=== PATIENT | female | born 1985 | race American Indian/Alaskan Native ===

== ENCOUNTER 2017-03-23 20:52 | Inpatient (IN) | payer MEDICAID ==
[2017-03-23] MEDS ORDERED: Ketorolac Tromethamine 30 MG/ML VIAL ONE (21:24)
[2017-03-23 21:27] LABS: #Basophils 0.1 thou/uL (0.0-0.2); #Lymphocytes 2.5 thou/uL (1.20-3.40); #Monocytes 0.8 thou/uL (0.11-0.59); %Basophils 0.6 % (0.0-1.0); %Eosinophils 0.4 % (0.0-10.0); %Lymphocytes 30.2 % (21.0-51.0); %Monocytes 9.4 % (0.0-10.0); Hematocrit 41.9 % (36.0-47.0); Red Blood Cell (RBC) Count 4.67 mill/uL (4.20-5.40); White Blood Cell (WBC) Count 8.4 thou/uL (4.8-10.8)
[2017-03-23 21:55] LABS: ALT (SGPT) 72 U/L (8-55); AST (SGOT) 35 U/L (5-34); Alkaline Phosphatase 202 U/L (40-150); Anion Gap 14 mmol/L (10-20); BUN (Urea Nitrogen) 12 mg/dL (7.0-18.7); Bilirubin, Total 0.6 mg/dL (0.2-1.2); CK (CPK) 59 U/L (29-168); Calc. Creatinine Clearance 0 mL/min (70-130); Calcium 9.1 mg/dL (7.8-10.44); Carbon Dioxide 22 mmol/L (22-29); Chloride 99 mmol/L (98-107); Estimated GFR-MDRD 39; Globulin 4.1 g/dL (2.4-3.5); Lipase 90 U/L (8-78); Protein, Total 7.7 g/dL (6.0-8.3)
[2017-03-23 21:56] LABS: Troponin I Less than 0.010 ng/mL (< 0.028)
[2017-03-23 21:58] LABS: Lactic Acid - Sepsis 4.2 mmol/L (0.5-2.2)
[2017-03-23 22:07] LABS: Bilirubin Negative (Negative); Blood, Urine Negative (Negative); Glucose, Urine (Dipstick) >=1000 mg/dL (Negative); Ketone, Urine Negative (Negative); Nitrite Positive (Negative); Protein, Urine (Dipstick) Negative (Neg-Trace); Urobilinogen 0.2 mg/dL (0.2-1.0)
[2017-03-23 22:10] LABS: Bacteria/HPF 4+ HPF (None Seen); Hyaline Casts/LPF 0-3 HYALINE CAST LPF (0-3 Hyaline); RBC/HPF 0-3 HPF (0-3); Squamous Epithelial 0-3 HPF (0-3)
[2017-03-23] MEDS ORDERED: Insulin Regular (Human) 100 UNITS, Admixture Fee 1 EACH in Sodium Chloride 0.9% 100 ML IVPB SCH (22:30)
--- NOTE | 2017-03-23 22:45 | RAD ---
PORTABLE AP CHEST: Date: 03-23-17 History: Chest pain, hyperglycemia. Patient went unresponsive for EMS but responded to pain. Patient is complaining of chest pain and dizziness as well as nausea and shoulder pain. Comparison: 03-31-15 FINDINGS: Cardiac silhouette and pulmonary vasculature are within normal limits for portable technique of the study. The lungs remain clear. There has been no interval change from the prior exam. IMPRESSION: No acute cardiopulmonary process. POS: [facility]
[2017-03-23] MEDS ORDERED: cefTRIAXone\\ROCEPHIN 1 GM VIAL ONE (22:51)
[2017-03-24] MEDS ORDERED: Dextrose 5 %-0.45 % NaCl 1,000 ML IV PRN (00:24)
[2017-03-24] MEDS ORDERED: Sodium Chloride 0.9% 1,000 ML IV PRN ×4 (00:24)
[2017-03-24] MEDS ORDERED: NS 0.9% w/ 20 MEQ KCL 1,000 ML IV PRN (00:24)
[2017-03-24] MEDS ORDERED: CCU Electrolyte Replacement 1 EACH IVPB ONE (00:24)
[2017-03-24] MEDS ORDERED: D5 1/2 NS w/20 mEq KCL 1,000 ML IV PRN (00:24)
[2017-03-24] MEDS ORDERED: Insulin Regular (Human) 100 UNITS, Admixture Fee 1 EACH in Sodium Chloride 0.9% 100 ML IVPB SCH (00:30)
[2017-03-24] MEDS ORDERED: Potassium Chloride 40 MEQ in Sodium Chloride 0.9% 250 ML 250 ML IVPB PRN (00:37)
[2017-03-24] MEDS ORDERED: Potassium Chloride 40 MEQ in Premix Bag 1 BAG IVPB PRN (00:37)
[2017-03-24] MEDS ORDERED: Potassium Chloride 20 MEQ TAB PO PRN (00:37)
[2017-03-24] MEDS ORDERED: Magnesium Oxide 400 MG TAB PO PRN ×2 (00:37)
[2017-03-24] MEDS ORDERED: Potassium Phosphate 9 MMOL in Sodium Chloride 0.9% 100 ML IVPB PRN (00:37)
[2017-03-24] MEDS ORDERED: Potassium Phosphate 12 MMOL in Sodium Chloride 0.9% 250 ML 250 ML IV PRN (00:37)
[2017-03-24] MEDS ORDERED: Potassium Phosphate 15 MMOL in Sodium Chloride 0.9% 250 ML 250 ML IV PRN (00:37)
[2017-03-24] MEDS ORDERED: Magnesium 2 GM/NS 0.9% 100 ML 2 GM in Premix Bag 1 BAG IVPB PRN (00:37)
[2017-03-24] MEDS ORDERED: CCU ELECTROLYTE REPLACEMENT PROTOCOL FS PRN (00:37)
--- NOTE | 2017-03-24 01:02 | PDOC.EVN ---
Event Note - Event Note Event Note: Attending H&P I personally evaluated the patient and discussed the management with Dr. Fernandez. I reviewed the written H&P and it is repeated by me. I agree with the History, Examination, Assessment and Plan documented above with any addition or exceptions noted below. Sadie has hyperosmolar hyperglycemia frmo type II DM. IV fluif resuscitation initiated. Insulin drip initiated. UA abnormal. Original UA and culture was clean catch. Will repeat culture with cath specimen.
[2017-03-24 01:08] VITALS: BMI 35.1
[2017-03-24 01:27] LABS: Phosphorus 2.2 mg/dL (2.3-4.7)
[2017-03-24] MEDS: NS 0.9% w/ 20 MEQ KCL 1,000 ML IV PRN ×2 (01:47→03:44)
[2017-03-24 02:07] LABS: Band 1 % (5-11); Hematocrit 36.4 % (36.0-47.0); Mean Platelet Volume 7.7 fL (7.4-10.4); Neutrophil 51 % (42-75); Red Blood Cell (RBC) Count 4.03 mill/uL (4.20-5.40); White Blood Cell (WBC) Count 8.6 thou/uL (4.8-10.8)
[2017-03-24 02:26] LABS: Anion Gap 9 mmol/L (10-20); BUN (Urea Nitrogen) 12 mg/dL (7.0-18.7); Calc. Creatinine Clearance 107 mL/min (70-130); Calcium 8.2 mg/dL (7.8-10.44); Carbon Dioxide 24 mmol/L (22-29); Chloride 105 mmol/L (98-107); Estimated GFR-MDRD 60
[2017-03-24 04:35] VITALS: BP 111/63; TEMP 97.7
[2017-03-24 04:35] LABS: Anion Gap 12 mmol/L (-14-95); T. Carbon Dioxide 22.8 mmol/L (1.0-85.0); pH (Venous) 7.475 (7.35-7.45); vO2 Saturation-calc 96.4 % (0.0-100.0)
[2017-03-24] MEDS ORDERED: NORGESTIMATE ETHINYL ESTRADIOL PO SCH (09:00)
[2017-03-24] MEDS ORDERED: Lisinopril 10 MG TAB PO SCH (09:00)
[2017-03-24] MEDS ORDERED: Gabapentin 300 MG CAP PO SCH (09:00)
[2017-03-24] MEDS ORDERED: cefTRIAXone\\ROCEPHIN 1 GM in Sodium Chloride 0.9% 100 ML IVPB SCH (22:00)
--- NOTE | 2017-03-29 06:57 | SS-2 ---
DATE OF SERVICE: 03/28/2017 CODE STATUS: FULL. PRIMARY CARE PROVIDER: Shanae Espinoza M.D. ATTENDING: Veto Henderson M.D. RESIDENT: Priscilla Fernandez DO. HISTORIAN: Patient. CHIEF COMPLAINT: Shortness of breath. HISTORY OF PRESENT ILLNESS: Patient is a 32-year-old female with past medical history of diabetes m ellitus, uncontrolled, who presents with worsening shortness of breath and generally not feeling wel l. She missed her afternoon insulin, became lightheaded and sick feeling around 8:00 p.m. took home insulin at that time. Admits to recent head congestion and dysuria. No nausea or vomiting. The p atient was obtunded on the ride to the hospital via EMS. Now alert and oriented x4. In the ER, she was started on insulin drip and given 2 liters of normal saline. PAST MEDICAL HISTORY: 1. Fatty liver disease. 2. Diabetes mellitus, sees Dr. Stevens at [facility]. 3. Neuropathy. 4. Hypertension. PAST SURGICAL HISTORY: 1. . 2. Liver biopsy. 3. Cyst removal. ALLERGIES: TRAMADOL causes itching. MEDICATIONS: 1. Lisinopril 10 mg p.o. daily. 2. Mexiletine 150 mg p.o. q.8 hours. 3. Tresiba 85 units daily. 4. Insulin 70/30, 30 units a.c. 5. Gabapentin 600 mg t.i.d. 6. Mononessa 28 ?. FAMILY HISTORY: 1. Dad with diabetes. 2. Brother with diabetes. 3. Grandmother with hypertension. SOCIAL HISTORY: The patient quit tobacco use one month ago. No alcohol and drug use. No ill conta cts. REVIEW OF SYSTEMS: General: Negative for fever and chills, weight, appetite changes, and night swe ats. Eyes: No vision changes. ENT: Positive for nasal congestion and sore throat. Respiratory: Positive for cough and shortness of breath. Cardiovascular: Negative for chest pain, palpitations , or edema. Gastrointestinal: Negative for nausea, vomiting, diarrhea, or constipation. Genitouri nary: Positive for dysuria and increased frequency. Skin: Negative for rashes or lesions. Muscul oskeletal: Negative for pain and tenderness. Neurologic: Negative for weakness or numbness or syn cope. Positive for lightheadedness. Psychiatric: Negative for anxiety or depression. PHYSICAL EXAMINATION: VITAL SIGNS: Blood pressure 141/101, pulse 97, respirations 18, pulse ox 97% on room air. GENERAL: The patient is alert and oriented x4, in no acute distress, appropriately interactive. EYES: EOMI. ENT: Nasal mucosa within normal limits. Does have some erythema in the oropharynx. NECK: Supple, with anterior cervical lymphadenopathy. CARDIOVASCULAR: Regular rate and rhythm. No murmurs or gallops. Radial pulses 2+, pedal pulses 2+ . RESPIRATORY: Normal effort, no retractions. Clear to auscultation bilaterally. ABDOMEN: Soft with suprapubic tenderness and positive bowel sounds in all 4 quadrants. No CVA tend erness. EXTREMITIES: No clubbing, cyanosis, or edema. MUSCULOSKELETAL: Structure within normal limits. NEUROLOGIC: No focal deficits. PSYCH: Appropriate. LABORATORY DATA: CBC: White blood cell count 8.4, hemoglobin 14.2, hematocrit 41.9, platelets 172. Chemistries: Sodium 131, potassium 4.4, chloride 99, CO2 of 22, BUN 12, creatinine 1.52, glucose 701, calcium 9.1, total protein 7.7, albumin 3.6, AST 35, ALT 72, alkaline phosphatase 202, total bi lirubin 0.6. Lactic acid 4.2. CK-MB 0.9, troponin less than 0.010. Lipase 90. VBG: pH 7.4, pCO2 29.7, PaO2 77.5. UA . Chest x-ray no acute process. ASSESSMENT AND PLAN: The patient was placed in IMCU and started on insulin drip and her medications for other chronic medical conditions. The patient was stabilized and her sugar has come down to th e 200s. 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 The patient then signed the AMA paperwork and left with guard ed disposition. DISCHARGE INSTRUCTIONS: 1. Location: Home. 2. Activity: As tolerated. 3. Diet: Carb conscious diet. 4. Followup: As soon as possible with Dr. Shanae Espinoza.
== END 2017-03-24 07:00 | disposition left against medical advice (07) | DRG 638 ==
LOC: ERS 20:52 → IMCU/EMU 03-24 00:28
PROVIDERS: ADMIT Family Medicine; ATTEND Family Medicine
DX: E11.10 Type 2 diabetes mellitus with ketoacidosis without coma (principal); N17.9 Acute kidney failure, unspecified; E87.2 Acidosis; E87.1 Hypo-osmolality and hyponatremia; N39.0 Urinary tract infection, site not specified; K76.0 Fatty (change of) liver, not elsewhere classified; Z88.5 Allergy status to narcotic agent; Z87.891 Personal history of nicotine dependence; Z83.3 Family history of diabetes mellitus; Z82.49 Family history of ischemic heart disease and other diseases of the circulatory system
CPT/HCPCS: 36415; 36416; 71010; 80048; 80053; 81003; 81015; 82010; 82330; 82553; 82803; 83605; 83690; 83735; 83930; 84100; 84484; 84703; 85007; 85025; 85027; 87040; 87077; 87086; 87186; 93005; 94760; 96360; 96361; 96365; 96375; J0696; J1815; J1885; J7050

== ENCOUNTER 2017-09-25 12:02 | Observation (INO) | payer MEDICAID ==
[2017-09-25 12:56] VITALS: BMI 33.6
[2017-09-25] MEDS ORDERED: Acetaminophen 500 MG TAB PO PRN (13:21)
[2017-09-25] MEDS ORDERED: Ondansetron HCl/PF 4 MG/2 ML Vial SLOW IVP PRN (13:21)
[2017-09-25] MEDS ORDERED: Sodium Chloride 0.9% 1,000 ML IV SCH (13:45)
[2017-09-25 13:49] LABS: #Basophils 0.1 thou/uL (0.0-0.2); #Lymphocytes 2.3 thou/uL (1.20-3.40); #Neutrophils 5.1 thou/uL (1.40-6.50); %Basophils 0.6 % (0.0-1.0); %Eosinophils 0.5 % (0.0-10.0); %Lymphocytes 27.1 % (21.0-51.0); %Neutrophils 59.8 % (42.0-75.0); Mean Corpuscular HGB CONC 33.7 g/dL (32.0-36.0); Mean Corpuscular Hemoglobin 29.7 pg (27.0-31.0); Mean Corpuscular Volume 88.3 fl (81.0-99.0); Platelet Count 200 thou/uL (130-400); RBC Distribution Width 12.8 % (11.5-14.5); Red Blood Cell (RBC) Count 4.38 mill/uL (4.20-5.40); White Blood Cell (WBC) Count 8.5 thou/uL (4.8-10.8)
[2017-09-25] MEDS: Sodium Chloride 0.9% 1,000 ML IV SCH ×2 (13:50→23:25)
[2017-09-25 14:14] LABS: Anion Gap 10 mmol/L (10-20); BUN (Urea Nitrogen) 17 mg/dL (7.0-18.7); Calc. Creatinine Clearance 98 mL/min (70-130); Calcium 9.2 mg/dL (7.8-10.44); Carbon Dioxide 25 mmol/L (22-29); Chloride 109 mmol/L (98-107); Estimated GFR-MDRD 57; Glucose 109 mg/dL (70-105); Magnesium 1.7 mg/dL (1.6-2.6); Phosphorus 2.3 mg/dL (2.3-4.7); Potassium 3.9 mmol/L (3.5-5.1); Sodium 140 mmol/L (136-145)
--- NOTE | 2017-09-25 15:20 | PDOC.FPRHP ---
- History of Present Illness Chief Complaint: Diarrhea, Dehydration History of Present Illness: 32 year old female with PMH of uncontrolled DM type II and neuropathy that presents with a 1 month history of watery and bloody diarrhea. Patient states she was visiting [place] a month ago and upon returning to the [facility] started to develop fever, N/V/D. She went to the ED at [facility] and was prescribed Levoquin for Traveler's diarrhea. The diarrhea worsened, so she went back several days later and was told to stop the antibiotics. She was given fluids and anti-emetics at that time which were successful in helping her to feel better. The n/v resolved after the ED visit; however, the diarrhea has not let up and seems to be more profuse. She states that it does not appear to be foul smelling. She is able to tolerate PO, but liquids go right through her. She has been dizzy the last few days. She was seen in clinic this AM and was noted to be mildly dehydrated with positive orthostatics. She has otherwise been feeling fine and able to go about her daily activities. Patient denies any recent cough , congestion, vision changes, chills, headaches, or profound abdominal pain. She does have cramping abdominal pain associated with diarrhea. Last BM was a few minutes prior to evaluation. ED Course: Patient was directly admitted from [facility]. - Allergies/Adverse Reactions Allergies Allergy/AdvReac Type Severity Reaction Status Date / Time codeine Allergy Verified 09/25/17 12:48 tramadol Allergy Rash Verified 11/28/15 22:03 - Home Medications Medication Instructions Recorded Confirmed Type Gabapentin [Neurontin] 600 mg PO Q8HR 01/09/15 09/25/17 History Morphine Sulfate [Morphine Sulfate] 15 mg PO HS 03/24/17 09/25/17 History Insulin Glargine,Hum.Rec.Anlog 40 unit SQ DAILY 09/25/17 09/25/17 History [Toujeo Solostar] Insulin Regular [HumuLIN R] 30 unit SC AC 09/25/17 09/25/17 History OXcarbazepine [Trileptal] 300 mg PO BID 09/25/17 09/25/17 History - History PMHx: DM type II uncontrolled, Neuropathy, NAFLD PSHx: C/S x1, biopsy of liver FHx: Brother - DM II, Mom - HTN, Dad - DM, Grandfather - colon cancer Social: Endorses smoking history. Quit 4 months ago. Smoke a cigarette every other day since 2010. Denies recent alcohol use. Denies history of drug use. - Review of Systems General: reports: fever/chills, fatigue. denies: weight/appetite/sleep changes Eyes: denies: eye pain, vision changes ENT: denies: nasal congestion, rhinorrhea Respiratory: denies: cough, congestion, shortness of breath Cardiovascular: denies: chest pain, palpitation, edema, paroxysmal nocturnal dyspnea, orthopnea Gastrointestinal: reports: nausea, vomiting, diarrhea, abdominal pain, GI bleeding. denies: constipation Genitourinary: denies: incontinence, dysuria, polyuria Skin: denies: rashes, lesions, jaundice Musculoskeletal: denies: pain, tenderness, stiffness, swelling, arthritis/ arthralgias Neurological: denies: numbness, syncope, seizure, weakness Psychological: reports: depression. denies: anxiety - Vital signs BP: [113/66] HR: [96] RR: [18] Tmax: [98.4] Pox: [94]% on [RA] Wt: [87 kg] - Physical Exam Constitutional: NAD, awake, alert and oriented, well developed HEENT: EOMI, conjunctiva clear, no scleral icterus, grossly normal vision, MMM Neck: supple, trachea midline Chest: no-tender to palpation Heart: RRR, normal S1/S2, no murmurs/rubs/gallops, pulses present, no edema Lungs: CTAB, no respiratory distress, good air movement, no retractions Abdomen: soft, bowel sounds present -Abdomen: Mildly tender to palpation diffusely, but worse in left quadrants Musculoskeletal: normal structure Neurological: no focal deficit, CN II-XII intact Skin: capillary refill <2 seconds Heme/Lymphatic: no unusual bruising or bleeding, no purpura, no petechia Psychiatric: normal mood and affect, good judgment and insight FMR H&P: Results - Labs Result Diagrams: 09/25/17 13:32 09/25/17 13:32 Lab results: WBC 8.5 thou/uL (4.8-10.8) 09/25/17 13:32 Hgb 13.0 g/dL (12.0-16.0) 09/25/17 13:32 Hct 38.7 % (36.0-47.0) 09/25/17 13:32 MCV 88.3 fl (81.0-99.0) 09/25/17 13:32 Plt Count 200 thou/uL (130-400) 09/25/17 13:32 Neutrophils % 59.8 % (42.0-75.0) 09/25/17 13:32 Sodium 140 mmol/L (136-145) 09/25/17 13:32 Potassium 3.9 mmol/L (3.5-5.1) 09/25/17 13:32 Chloride 109 mmol/L (98-107) H 09/25/17 13:32 Carbon Dioxide 25 mmol/L (22-29) 09/25/17 13:32 BUN 17 mg/dL (7.0-18.7) 09/25/17 13:32 Creatinine 1.11 mg/dL (0.6-1.1) H 09/25/17 13:32 Glucose 109 mg/dL (70-105) H 09/25/17 13:32 Calcium 9.2 mg/dL (7.8-10.44) 09/25/17 13:32 FMR H&P: A/P - Problem List (1) Colitis presumed infectious Current Visit: Yes Status: Acute Code(s): K52.9 - NONINFECTIVE GASTROENTERITIS AND COLITIS, UNSPECIFIED (2) LUIS (acute kidney injury) Current Visit: Yes Status: Acute Code(s): N17.9 - ACUTE KIDNEY FAILURE, UNSPECIFIED (3) Neuropathy Current Visit: Yes Status: Chronic Code(s): G62.9 - POLYNEUROPATHY, UNSPECIFIED (4) Insulin dependent type 2 diabetes mellitus, uncontrolled Current Visit: No Status: Chronic Code(s): E11.65 - TYPE 2 DIABETES MELLITUS WITH HYPERGLYCEMIA; Z79.4 - AIRLINE STEWARDESS (CURRENT) USE OF INSULIN - Plan Colitis, presumed infectious - 1 month history of bloody and watery diarrhea - Bentyl for abdominal cramping - Fluids for dehydration; NS @ 125 ml/hr - s/p 1 L bolus NS - Stool culture, stool for E. coli, stool lactoferrin, C. difficile assays, O&P , and vibrio cholera tests pending - Afebrile Moderate dehydration - S/p 1L NS bolus - Maintenance fluids at 125 ml/hr LUIS - s/p 1L NS bolus - Maintenance IVF at 125 ml/hr - AM BMP DM type II - Continue home insulin regimen - BG on BMP 109 - Mild SSI - Check HgA1c if not previously checked; HgA1c 13.2 in 2016 Neuropathy - Continue home medications Hx of HTN - Monitor BP - Add medication if necessary Disposition/LOS: Dispo: Plan for discharge home tomorrow pending hydration status. FMR H&P: Upper Level - Pertinent history Pt is a pleasant 32 yo HF w/PMH of uncontrolled IDDM and neuropathy presents with a 3-4 week hx of bloody diarrhea. She went to another hospital an received Levaquin which she feels made the symptoms worse. Endorses subjective chills, cramping abdominal pain more in her upper abdomen. She has no hx of diarrhea or IBS. Endorses trip to [place] about 1 mo ago. She was direct admitted from clinic for dehydration and stool studies. - Pertinent findings Gen: AOx3 Cardiac: RRR Lungs: CTA Abdomen: normoactive BS, TTP in RUQ and LUQ Extremities: no edema, normal skin tenting, cap refill <2s - Plan Date/Time: 09/25/17 1518 ILynette, have evaluated this patient and agree with findings/plan as outlined by international marketing manager resident. Pertinent changes/additions are listed here. Pertinent A/P- 1. Possible infection colitis-given duration of symptoms, will treats for dehydration with NS, zofran prn nausea, bentyl for abdominal cramping. Stool studies ordered. Pt may need an outpatient colonoscopy after treatment of these symptoms and resolution in 4-6 weeks 2. IDDM-will substitute Toujeo for levemir and add aggressive SSI, check A1c if not recently checked in clinic 3. Neuropathy-will treat with home meds per Dr. Ryan but hold morphine 4. Hx of htn-monitor and add medication if needed
[2017-09-25] MEDS ORDERED: Dextrose 50% Abboject 50 ML SYRINGE SLOW IVP PRN (15:31)
[2017-09-25] MEDS ORDERED: HumaLOG 300 UNITS/3 ML VIAL SC PRN (15:31)
[2017-09-25] MEDS ORDERED: Dextrose 5% in Water 1,000 ML IV PRN (15:31)
[2017-09-25 15:56] LABS: Ref Lab Test Ordered VIBRIO STOOL; Reference Lab Name LABCORP
[2017-09-25] MEDS: Insulin Regular 300 UNITS/3 ML VIAL SC SCH (17:09)
[2017-09-25] MEDS: Dicyclomine 10 MG CAP PO SCH ×2 (17:09→20:30)
[2017-09-25] MEDS: Gabapentin 300 MG CAP PO SCH (20:29)
[2017-09-25] MEDS: OXcarbazepine 300 MG TAB PO SCH (20:29)
[2017-09-25] MEDS: Morphine IR Tab 15 MG TAB PO SCH (20:30)
[2017-09-25 20:45] LABS: Pregnancy Test - Urine (BHCG) Negative (Negative)
[2017-09-25 20:46] LABS: Pregu Control Background? CLEAR/WHITE (CLR/WHITE); Pregu Control Bar Appear? YES (CONTROL BAR); Specific Gravity 1.017 (1.002-1.036)
[2017-09-26 05:11] LABS: Anion Gap 7 mmol/L (10-20); BUN (Urea Nitrogen) 15 mg/dL (7.0-18.7); Calc. Creatinine Clearance 153 mL/min (70-130); Calcium 8.1 mg/dL (7.8-10.44); Carbon Dioxide 21 mmol/L (22-29); Chloride 114 mmol/L (98-107); Estimated GFR-MDRD Greater than 90; Glucose 98 mg/dL (70-105); Potassium 3.7 mmol/L (3.5-5.1); Sodium 138 mmol/L (136-145)
--- NOTE | 2017-09-26 05:23 | PDOC.FM ---
- Subjective Subjective: Sadie Mederos seen at bedside this morning. States she continued to have many BMs last night and was unable to get adequate sleep. She denies any fever, chills, chest pain, dyspnea, n/v. BMs are still watery and blood is present. - Objective MAR Reviewed: Yes Vital Signs & Weight: Vital Signs (12 hours) Temp Pulse Resp BP Pulse Ox 09/26/17 04:05 84 18 108/56 L 96 09/25/17 23:25 92 16 120/67 96 09/25/17 20:25 98.1 F 87 16 112/57 L 95 Weight Weight 86.183 kg I&O: 09/24/17 09/25/17 09/26/17 06:59 06:59 06:59 Intake Total 1850 Balance 1850 Result Diagrams: 09/25/17 13:32 09/26/17 04:19 <Catalino Saba - Last Filed: 09/26/17 06:49> - Objective Vital Signs & Weight: Vital Signs (12 hours) Temp Pulse Resp BP Pulse Ox 09/26/17 11:20 97.7 F 93 18 127/79 97 09/26/17 07:48 98.1 F 84 18 09/26/17 07:09 97.8 F 93 18 118/72 96 09/26/17 04:05 84 18 108/56 L 96 Weight Weight 86.183 kg I&O: 09/25/17 09/26/17 09/27/17 06:59 06:59 06:59 Intake Total 3765 Balance 3765 Result Diagrams: 09/25/17 13:32 09/26/17 04:19 <Sanchez Bang - Last Filed: 09/26/17 15:07> Phys Exam - Physical Examination Constitutional: NAD HEENT: moist MMs, sclera anicteric Neck: supple, full ROM Respiratory: no wheezing, no rales, no rhonchi, clear to auscultation bilateral Cardiovascular: RRR, no significant murmur Gastrointestinal: soft, no distention, positive bowel sounds diffuse TTP Musculoskeletal: no edema, pulses present Neurological: non-focal, normal sensation, moves all 4 limbs Psychiatric: normal affect, A&O x 3 Skin: no rash, normal turgor, cap refill <2 seconds <Catalino Saba - Last Filed: 09/26/17 06:49> Dx/Plan (1) Colitis presumed infectious Code(s): K52.9 - NONINFECTIVE GASTROENTERITIS AND COLITIS, UNSPECIFIED Status : Acute (2) LUIS (acute kidney injury) Code(s): N17.9 - ACUTE KIDNEY FAILURE, UNSPECIFIED Status: Resolved (3) Neuropathy Code(s): G62.9 - POLYNEUROPATHY, UNSPECIFIED Status: Chronic (4) Insulin dependent type 2 diabetes mellitus, uncontrolled Code(s): E11.65 - TYPE 2 DIABETES MELLITUS WITH HYPERGLYCEMIA; Z79.4 - RETIREMENT (CURRENT) USE OF INSULIN Status: Chronic - Plan Plan: Colitis, presumed infectious - 1 month history of bloody and watery diarrhea - Continue bentyl for abdominal cramping - Continue fluids for dehydration; NS @ 125 ml/hr - s/p 1 L bolus NS - Studies negative for campylobacter, shiga, giardia, crypto, absent fecal lactoferrin - Pending Stool culture, C. difficile assays, O&P, and vibrio cholera - Afebrile Moderate dehydration - S/p 1L NS bolus - Maintenance fluids at 125 ml/hr LUIS - now resolved - s/p 1L NS bolus - Maintenance IVF at 125 ml/hr DM type II - Continue home insulin regimen - Fasting BG this morning was 109 - Mild SSI - Check HgA1c if not previously checked; HgA1c 13.2 in 2016 Neuropathy - Continue home medications Hx of HTN - Monitor BP - Add medication if necessary Disposition/LOS: Dispo: Plan for discharge home today pending hydration status. <Catalnio Saba - Last Filed: 09/26/17 06:49> Attending Addendum - Attending Addendum Date/Time: 09/26/17 7409 I personally evaluated the patient and discussed the management with Dr. Hernandez and Dr. Saba. I agree with the History, Examination, Assessment and Plan documented above with any addition or exceptions noted below. Ms. Mederos is a 32 y/o who presented with a 1 month hx of diarrhea that started a few days after returning from a trip to [place]. She was previously treated with Levaquin that made symptoms worse. Has been having bloody diarrhea, cramps, but no fever, chills or sweats since early in the course when she did run subjective fever. She feels slightly better since admission with the fluids, but still had many liquid BMs over night. PMH: Insulin dependent DM2, Neuropathy. HEENT: mm moist, no icterus. Neck: no adenopathy Lungs: CTA Cor: RRR, no murmur Abd: soft, BS active, no organomegaly or masses. Mild generalized abdominal tenderness but no guard or rebound. Ext: No C/E/C/Pallor Alert and oriented. All stool studies are negative so far. 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 P: Start Oral Metronidazole. Send out stool test for O&P. MD Harrison <Sanchez Bang - Last Filed: 09/26/17 15:07>
[2017-09-26] MEDS: Gabapentin 300 MG CAP PO SCH ×3 (05:40→20:14)
[2017-09-26] MEDS: Insulin Regular 300 UNITS/3 ML VIAL SC SCH ×3 (08:20→17:14)
[2017-09-26] MEDS: Dicyclomine 10 MG CAP PO SCH ×4 (08:20→20:09)
[2017-09-26] MEDS: Sodium Chloride 0.9% 1,000 ML IV SCH (08:20)
[2017-09-26] MEDS ORDERED: Non-Formulary Item 1 EACH (Insulin Glargine,Hum.Rec.Anlog [Toujeo Solostar] 40 UNIT) SQ SCH (09:00)
[2017-09-26] MEDS ORDERED: Enoxaparin Sodium 40 MG/0.4 ML SYRINGE SC SCH (09:00)
[2017-09-26] MEDS: OXcarbazepine 300 MG TAB PO SCH ×2 (09:41→20:09)
[2017-09-26] MEDS: Insulin Detemir 100 UNITS/ML 40 UNITS in Pre-Filled Syringe SC SCH (09:41)
[2017-09-26] MEDS: Lactinex Tablet PO SCH (09:41)
[2017-09-26] MEDS: metroNIDAZOLE 500 MG TAB PO SCH ×2 (11:26→20:09)
[2017-09-26] MEDS: Morphine IR Tab 15 MG TAB PO SCH (20:09)
[2017-09-27] MEDS: metroNIDAZOLE 500 MG TAB PO SCH (02:16)
[2017-09-27] MEDS: Gabapentin 300 MG CAP PO SCH (05:27)
--- NOTE | 2017-09-27 06:01 | PDOC.FM ---
- Subjective Subjective: Sadie Mederos seen at bedside this morning. She is feeling better however she continued to have multiple watery BMs last night, no blood though. She denies any fever, chills, chest pain, dyspnea. She is tolerating PO fluids well without nausea or vomiting. - Objective MAR Reviewed: Yes Vital Signs & Weight: Vital Signs (12 hours) Temp Pulse Resp BP BP Pulse Ox 09/27/17 02:13 97.7 F 99 16 135/84 96 09/26/17 20:09 98.3 F 95 18 09/26/17 18:57 98.3 F 95 18 128/73 95 Weight Weight 86.183 kg I&O: 09/25/17 09/26/17 09/27/17 06:59 06:59 06:59 Intake Total 3765 960 Balance 3765 960 Result Diagrams: 09/27/17 06:03 09/26/17 04:19 <Catalino Saba - Last Filed: 09/27/17 06:49> - Objective Vital Signs & Weight: Vital Signs (12 hours) Temp Pulse Resp BP BP Pulse Ox 09/27/17 11:39 98.3 F 101 H 18 131/72 96 09/27/17 08:00 97.6 F 102 H 16 09/27/17 07:10 97.6 F 102 H 16 135/82 96 09/27/17 02:13 97.7 F 99 16 135/84 96 Weight Weight 86.183 kg I&O: 09/26/17 09/27/17 09/28/17 06:59 06:59 06:59 Intake Total 3765 960 Balance 3765 960 Result Diagrams: 09/27/17 06:03 09/27/17 06:03 <Sanchez Bang - Last Filed: 09/27/17 12:26> Phys Exam - Physical Examination Constitutional: NAD HEENT: moist MMs, sclera anicteric Neck: no JVD, supple, full ROM Respiratory: no wheezing, no rales, no rhonchi, clear to auscultation bilateral Cardiovascular: RRR, no significant murmur Gastrointestinal: soft, non-tender, no distention, positive bowel sounds no TTP compared to yesterday Musculoskeletal: no edema, pulses present Neurological: non-focal, moves all 4 limbs Psychiatric: normal affect, A&O x 3 Skin: normal turgor, cap refill <2 seconds <Catalino Saba - Last Filed: 09/27/17 06:49> Dx/Plan (1) Colitis presumed infectious Code(s): K52.9 - NONINFECTIVE GASTROENTERITIS AND COLITIS, UNSPECIFIED Status : Acute (2) LUIS (acute kidney injury) Code(s): N17.9 - ACUTE KIDNEY FAILURE, UNSPECIFIED Status: Resolved (3) Neuropathy Code(s): G62.9 - POLYNEUROPATHY, UNSPECIFIED Status: Chronic (4) Insulin dependent type 2 diabetes mellitus, uncontrolled Code(s): E11.65 - TYPE 2 DIABETES MELLITUS WITH HYPERGLYCEMIA; Z79.4 - RADARMAN (CURRENT) USE OF INSULIN Status: Chronic - Plan Plan: Colitis, presumed infectious - 1 month history of bloody and watery diarrhea - Continue bentyl for abdominal cramping - Holding fluids now as patient is tolerating PO fluids - s/p 1 L bolus NS - Studies negative for campylobacter, shiga, giardia, crypto, c diff, absent fecal lactoferrin, culture negative to date - Pending Stool culture, O&P, and vibrio cholera - Afebrile Moderate dehydration - S/p 1L NS bolus - hydration status improved, tolerating PO fluids LUIS - now resolved - s/p 1L NS bolus - improved DM type II - Continue home insulin regimen - Fasting BG this morning was 109 - Mild SSI - Check HgA1c if not previously checked; HgA1c 13.2 in 2016 Neuropathy - Continue home medications Hx of HTN - Monitor BP - Add medication if necessary <Catalino Saba - Last Filed: 09/27/17 06:49> Attending Addendum - Attending Addendum Date/Time: 09/27/17 1224 I personally evaluated the patient and discussed the management with Dr. Saba. I agree with the History, Examination, Assessment and Plan documented above with any addition or exceptions noted below. She reports diarrhea has slowed a little bit. No blood. Stool studies negative, but await the Send out for entameboae histolytica. Stable for discharge today on Flagyl 750 mg tid. F/U at [facility] with her PCP. Lactose free diet. If she fails to improve on this regimen would recommend a diagnostic colonoscopy for biopsies. Harrison< <Sanchez Bang - Last Filed: 09/27/17 12:26>
[2017-09-27 06:41] LABS: #Eosinphils 0.1 thou/uL (0.0-0.7); #Lymphocytes 1.9 thou/uL (1.20-3.40); #Monocytes 0.9 thou/uL (0.11-0.59); #Neutrophils 3.8 thou/uL (1.40-6.50); %Basophils 0.5 % (0.0-1.0); %Eosinophils 1.1 % (0.0-10.0); %Lymphocytes 28.3 % (21.0-51.0); %Monocytes 13.2 % (0.0-10.0); %Neutrophils 56.9 % (42.0-75.0); Hemoglobin 11.6 g/dL (12.0-16.0); Mean Corpuscular HGB CONC 33.4 g/dL (32.0-36.0); Mean Corpuscular Hemoglobin 30.2 pg (27.0-31.0); Mean Corpuscular Volume 90.5 fl (81.0-99.0); Platelet Count 155 thou/uL (130-400); RBC Distribution Width 12.9 % (11.5-14.5); Red Blood Cell (RBC) Count 3.85 mill/uL (4.20-5.40); White Blood Cell (WBC) Count 6.6 thou/uL (4.8-10.8)
[2017-09-27 07:11] LABS: ALT (SGPT) 46 U/L (8-55); AST (SGOT) 45 U/L (5-34); Albumin 3.1 g/dL (3.5-5.0); Alkaline Phosphatase 107 U/L (40-150); Anion Gap 10 mmol/L (10-20); BUN (Urea Nitrogen) 14 mg/dL (7.0-18.7); Bilirubin, Total 0.3 mg/dL (0.2-1.2); Calc. Creatinine Clearance 143 mL/min (70-130); Calcium 8.3 mg/dL (7.8-10.44); Carbon Dioxide 16 mmol/L (22-29); Chloride 114 mmol/L (98-107); Estimated GFR-MDRD 88; Globulin 3.4 g/dL (2.4-3.5); Glucose 124 mg/dL (70-105); Potassium 4.3 mmol/L (3.5-5.1); Protein, Total 6.5 g/dL (6.0-8.3); Sodium 136 mmol/L (136-145)
[2017-09-27] MEDS: Insulin Regular 300 UNITS/3 ML VIAL SC SCH (08:46)
[2017-09-27] MEDS: Insulin Detemir 100 UNITS/ML 40 UNITS in Pre-Filled Syringe SC SCH (08:46)
[2017-09-27] MEDS: Lactinex Tablet PO SCH (08:47)
[2017-09-27] MEDS: Dicyclomine 10 MG CAP PO SCH (08:47)
[2017-09-27] MEDS: OXcarbazepine 300 MG TAB PO SCH (08:47)
[2017-09-27 12:06] VITALS: BP 131/72; TEMP 98.3
--- NOTE | 2017-09-28 11:09 | DIS-2 ---
DATE OF ADMISSION: 09/25/2017 DATE OF DISCHARGE: 09/27/2017 RESIDENT: Catalino Saba M.D. ADMITTING ATTENDING: Dr. Latoya Mayo. DISCHARGE ATTENDING: Dr. Sanchez Bagn. CONSULTATIONS: None. PROCEDURES: None. PRIMARY DIAGNOSIS: Infectious colitis. SECONDARY DIAGNOSES: 1. Type 2 diabetes mellitus. 2. Neuropathy. 3. Acute kidney injury. 4. Dehydration. DISCHARGE MEDICATIONS: 1. Gabapentin 600 mg p.o. q.8 hours. 2. Morphine sulfate 15 mg p.o. at bedtime. 3. Humulin R 30 units subcu a.c. 4. Oxcarbazepine 300 mg p.o. b.i.d. 5. Insulin Glargine 40 units subcu daily. NEW HOME MEDICATIONS: 1. Lactobacillus 1 tab p.o. daily. 2. Metronidazole 500 mg p.o. t.i.d. HISTORY OF PRESENT ILLNESS AND HOSPITAL COURSE: Ms. Sadie Mederos is a 32-year-old female with past medical history of uncontrolled type 2 diabetes mellitus, neuropathy who presents with a 1 month his tory of watery and bloody diarrhea. The patient states that she was visiting [place] one month ago an d upon [facility], she developed fever, nausea, vomiting, diarrhea. She went to the ED at [facility] and was prescribed Levaquin for traveler's diarrhea. The diarrhea worsened and sh e went back several days later and was told to stop the antibiotics. She was given fluids and antiem etics at that time, which were successful in improving her symptoms. Her nausea and vomiting resolve d after that visit; however, the diarrhea has continued and seems to be worsening. Patient states th at the diarrhea does not appear to be foul smelling. She is able to tolerate p.o. fluids, but the fl uids go right through her and she has been dizzy for the last few days. She was seen in clinic at [facility] and was found to be mildly dehydrated and had positive orthostatics, so she was ad mitted to the hospital. Patient was started on Bentyl for abdominal cramping and started on IV fluid s for dehydration. Stool cultures and stool studies were done within the first day of her admission. Her LUIS resolved. Creatinine went from 1.11-0.71. Stool studies showed absence of elevated fecal lactoferrin, negative Giardia and cryptosporidium antigens. Stools culture showed no gram negative, normal enteric queenie, few gram positive, normal enteric queenie including few yeast and no Salmonella, Shigella, or E. coli on . Campylobacter and Shiga toxin tests were negative and C. difficile an tigen and toxins were negative. Ova and parasites are pending as well as tissue transglutaminase IgA as well as fecal fat and Vibrio cholerae test is still pending. Patient's dehydration cleared and w as cleared for discharge with close follow up with [facility] physicians. The patient was advised to increase p.o. fluid intake with low fat, which is including water or sugar free Gatorade or Pedialyte . The patient was started on metronidazole on 09/26/2017 for treatment of presumed Entamoeba histoly miles infection. Her pending studies will hopefully provide definitive diagnosis. Patient's abdomina l pain improved during her admission. DISPOSITION: Stable. DISCHARGE INSTRUCTIONS: 1. Location: Home. 2. Diet: Diabetic diet with increasing fluid intake with low sugar beverages. 3. Activity: As tolerated. 4. Followup: Follow up with [facility] physician within next 3 days for reevaluation.
[2017-10-01 15:28] LABS: Routine O & P Final report (.)
== END 2017-09-27 13:06 | disposition home or self-care (01) ==
LOC: 2SW 12:02
PROVIDERS: ADMIT Family Medicine; ATTEND Family Medicine
DX: A09 Infectious gastroenteritis and colitis, unspecified (principal); E11.40 Type 2 diabetes mellitus with diabetic neuropathy, unspecified; N17.9 Acute kidney failure, unspecified; E86.0 Dehydration; E11.65 Type 2 diabetes mellitus with hyperglycemia; Z88.5 Allergy status to narcotic agent; Z79.891 Long term (current) use of opiate analgesic; Z79.4 Long term (current) use of insulin; Z79.899 Other long term (current) drug therapy; Z98.891 History of uterine scar from previous surgery; Z98.890 Other specified postprocedural states; Z87.891 Personal history of nicotine dependence
CPT/HCPCS: 36415; 36416; 80048; 80053; 81025; 83516; 83630; 83735; 84100; 85025; 87045; 87046; 87177; 87324; 87328; 87329; 87449; 87899; 93005; 93010; 96360; 96361; G0378; J1815

== ENCOUNTER 2017-09-29 17:24 | Emergency (ER) | payer MEDICAID | END 2017-09-29 22:07 | disposition home or self-care (01) | LOC: ERS 17:24 | DX: K64.8 Other hemorrhoids (principal); K64.4 Residual hemorrhoidal skin tags; R19.7 Diarrhea, unspecified; E11.40 Type 2 diabetes mellitus with diabetic neuropathy, unspecified; F41.9 Anxiety disorder, unspecified; F32.9 Major depressive disorder, single episode, unspecified; F17.210 Nicotine dependence, cigarettes, uncomplicated; Z79.4 Long term (current) use of insulin | CPT/HCPCS: 96360 ==

== ENCOUNTER 2017-10-01 12:18 | Observation (INO) | payer MEDICAID ==
[2017-10-01 13:20] VITALS: BMI 33.2
[2017-10-01] MEDS ORDERED: Diphenoxylate HCl/Atropine Tablet PO PRN (13:38)
[2017-10-01] MEDS ORDERED: Diphenoxylate HCl/Atropine Tablet PO SCH (13:45)
[2017-10-01] MEDS ORDERED: Lactated Ringer's 1,000 ML IV SCH (13:45)
--- NOTE | 2017-10-01 13:59 | PDOC.FPRHP ---
- History of Present Illness Chief Complaint: Dehydration, Intractable Diarrhea History of Present Illness: 32 year old female with PMH of uncontrolled DM type II and neuropathy that presents with a 1.5 month history of watery and bloody diarrhea. Patient states she was visiting [place] a month ago and upon returning to the [facility] started to develop fever, N/V/D. She went to the ED at [facility] and was prescribed Levoquin for Traveler's diarrhea. The diarrhea worsened, so she went back several days later and was told to stop the antibiotics. She was given fluids and anti-emetics at that time which were successful in helping her to feel better. The n/v resolved after the ED visit; however, the diarrhea has not let up and seems to be more profuse. Pt then went into clinic last week where she was found to be dehydrated and then admitted to [facility]. At that time we got stool studies and cultures all which are negative at this time. She got IV fluids and rehydrated. She was then discharged a few days ago. She also was px flagyl to try and treat for entomeba hystolytica. She came into the ER 2 nights ago and dx with hemorrhoids and told to f/u in clinic. She then f/u in clinic today where diarrhea was not improved. She has not been tolerating PO food. She has been taking the flagyl with no success. Says she has been drinking plenty of fluids but they go right through her. At clinic her BP was 90/40 and she was tachycardic. She was then sent her for admission due to dehydration. Pt reports Reports being dizzy and lightheaded. Pt states she also get SOB with exertion. Pt reports having tried Pepto and Immodium in past for diarrhea and did not resolve symptoms. Pt denies nausea or vomiting. Denies any fever or chills. Reports having crampy sharp shooting abdominal pain. Denies any chest pain. Denies any other sx's at this time. - Allergies/Adverse Reactions Allergies Allergy/AdvReac Type Severity Reaction Status Date / Time codeine Allergy Verified 10/01/17 13:18 tramadol Allergy Rash Verified 10/01/17 13:18 - Home Medications Medication Instructions Recorded Confirmed Type Gabapentin [Neurontin] 600 mg PO Q8HR 01/09/15 10/01/17 History Morphine Sulfate 15 mg PO HS 03/24/17 10/01/17 History Insulin Glargine,Hum.Rec.Anlog 40 unit SQ DAILY 09/25/17 10/01/17 History [Touandreo Solostar] Insulin Regular [HumuLIN R Vial] 30 unit SC AC 09/25/17 10/01/17 History Lactobacillus [Floranex] 1 tab PO DAILY #30 tab 09/27/17 10/01/17 Rx - History PMHx: DM type II uncontrolled, Neuropathy, NAFLD PSHx: C/S x1, biopsy of liver FHx: Brother - DM II, Mom - HTN, Dad - DM, Grandfather - colon cancer Social: Endorses smoking history. Quit 4 months ago. Smoke a cigarette every other day since 2010. Denies recent alcohol use. Denies history of drug use. - Review of Systems General: reports: weight/appetite/sleep changes. denies: fever/chills, night sweats, fatigue Eyes: denies: eye pain, vision changes ENT: denies: nasal congestion, rhinorrhea Respiratory: denies: cough, congestion, shortness of breath, exercise intolerance Cardiovascular: denies: chest pain, palpitation, edema, paroxysmal nocturnal dyspnea, orthopnea, other Gastrointestinal: reports: diarrhea, abdominal pain. denies: nausea, vomiting, constipation, GI bleeding Genitourinary: denies: incontinence, dysuria, polyuria, discharge Skin: denies: rashes, lesions, jaundice, itching Musculoskeletal: denies: pain, tenderness, stiffness, swelling, arthritis/ arthralgias Neurological: denies: numbness, syncope, seizure, weakness Psychological: denies: anxiety, depression - Vital signs BP: [] HR: [] RR: [] Tmax: [] Pox: []% on [] Wt: [] - Physical Exam Constitutional: NAD, awake, alert and oriented, well developed HEENT: normocephalic and atraumatic, PERRLA, conjunctiva clear, normal nasal mucosa -HEENT: mucous membranes dry Neck: supple, trachea midline, no LAD, no thyromegaly Chest: no-tender to palpation, no lesions Heart: RRR, normal S1/S2, no murmurs/rubs/gallops, pulses present, no edema Lungs: CTAB, no respiratory distress, good air movement, no rales/rhonchi, no wheezing, no retractions Abdomen: soft, bowel sounds present, no masses/distention -Abdomen: all quadrants tender to palpation Musculoskeletal: normal structure, normal tone, ROM grossly normal Neurological: no focal deficit, normal sensation Skin: no rash/lesions, good turgor, capillary refill <2 seconds, no jaundice Heme/Lymphatic: no unusual bruising or bleeding, no purpura, no petechia Psychiatric: normal mood and affect, good judgment and insight, intact recent and remote memory FMR H&P: Results - Labs Result Diagrams: 10/01/17 13:44 10/01/17 13:44 Lab results: Labs are pending FMR H&P: A/P - Problem List (1) Intractable diarrhea Current Visit: Yes Status: Acute Code(s): R19.7 - DIARRHEA, UNSPECIFIED (2) Gastroenteritis Current Visit: No Status: Acute Code(s): K52.9 - NONINFECTIVE GASTROENTERITIS AND COLITIS, UNSPECIFIED (3) Insulin dependent type 2 diabetes mellitus, uncontrolled Current Visit: No Status: Chronic Code(s): E11.65 - TYPE 2 DIABETES MELLITUS WITH HYPERGLYCEMIA; 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 Pt hypotensive and tachycardic at outside clinic. - Bentyl and simethicone for abdominal cramping and gas pain -Possibly get CT abdomen/pelvis for further evaluation - Fluids for dehydration; Will give 1 bolus LR and then continue maintenance w/ LR @ 125 ml/hr - Stool culture, stool for E. coli, stool lactoferrin, C. difficile assays, O&P , and vibrio cholera tests all negative at recent hospitilization 2 days ago. No need to repeat at this time -ttG was negative at last visit -Consult GI- Case- follow recs -CBC pending, CMP pending - Afebrile Moderate dehydration - Pt has dry mucous membranes and hypotensive and tachycardic at outside clinic - Give a boluis and then Maintenance fluids at 125 ml/hr DM type II - Continue home insulin regimen -Awaiting CMP - Mild SSI Neuropathy - Continue home medications Hx of HTN - Monitor BP - Add medication if necessary FMR H&P: Upper Level - Pertinent history Pt is a 32 yo F who was recently admitted for diarrhea and discharged this past weekend on 09/27/17. She states that after she went home, she has had excruciating rectal pain with bms and has developed hemorrhoids. She actually came back to ED after being discharged for the pain and was told she had hemorrhoids by the ED physician. All of her stool studies during that stay were negative. She has no hx or family hx of IBS or inflammatory bowel disease. States that she continues to have mostly watery-green liquid stools 3x per hour. Trying to stay hydrated by cannot maintain hydration with amount of diarrhea. Continues to have cramping and some lightheadedness. Denies n/v, fever , chest pain, shortness of breath. - Pertinent findings Temp 98.1 P 101 resp 15 O2 98% BP 126/72 General: appears in no acute distress, obese, AOx4 HEENT: mildly dry mm Heart: RRR, no murmurs gallops clicks or rubs Lungs: CTA, no wheezes rales rubs rhonchi Abdomen: soft, mild diffuse TTP, normoactive bs Extremities: cap refill <2 s, no tenting, several attempts at IV - Plan Date/Time: 10/01/17 1359 1. Dehydtation 2/2 to diarrhea of unknown origin-does not appear to be infectious from multiple stool studies done at last admission, having bloody diarrhea, no hx of inflammatory bowel disease but with re-admission with obtain CT and consult GI, appreciate recs. We will give her lomotil for her cramping symptoms, states that bentyl has not helped in the past. NS @ 200. Encouraged oral hydration. 2. External hemorrhoids-will give topical lidocaine and hydrocortisone cream for symptomatic relief. She has been recommended sitz baths in the past as well. 3. [id number] home insulin--takes lantus will get levemir here and SSI 4. Neuropathy- continue home gabapentin I, Lynette Kumar, have evaluated this patient and agree with findings/plan as outlined by internal combustion engine subassembler resident. Pertinent changes/additions are listed here. Attending Addendum - Attending Addendum Date/Time: 10/01/17 [id number] I personally evaluated the patient and discussed the management with Dr. Faust on 10/01/17. I agree with the History, Examination, Assessment and Plan documented above with any addition or exceptions noted below. Patient continues to have diarrhea after lomotil. Dr. Watson coming to evaluate patient shortly, likely going to colonoscopy tomorrow morning. May have clear liquids tonight. Abd exam benign and workup on diarrhea normal up to this point. Continue rehydration and diabetes management in the meantime.
[2017-10-01 14:12] LABS: #Eosinphils 0.1 thou/uL (0.0-0.7); #Lymphocytes 2.2 thou/uL (1.20-3.40); #Monocytes 0.8 thou/uL (0.11-0.59); %Basophils 0.6 % (0.0-1.0); %Eosinophils 0.9 % (0.0-10.0); %Lymphocytes 27.1 % (21.0-51.0); %Monocytes 10.3 % (0.0-10.0); %Neutrophils 61.1 % (42.0-75.0); Hemoglobin 12.7 g/dL (12.0-16.0); Mean Corpuscular HGB CONC 34.2 g/dL (32.0-36.0); Mean Corpuscular Hemoglobin 30.5 pg (27.0-31.0); Mean Corpuscular Volume 89.1 fl (81.0-99.0); Mean Platelet Volume 7.5 fL (7.4-10.4); Platelet Count 194 thou/uL (130-400); RBC Distribution Width 13.3 % (11.5-14.5); Red Blood Cell (RBC) Count 4.18 mill/uL (4.20-5.40); White Blood Cell (WBC) Count 8.1 thou/uL (4.8-10.8)
[2017-10-01] MEDS ORDERED: Simethicone Chewable 80 MG TAB PO PRN (14:13)
[2017-10-01] MEDS ORDERED: Ondansetron HCl/PF 4 MG/2 ML Vial IVP PRN (14:32)
[2017-10-01] MEDS ORDERED: Ondansetron ODT 4 MG TAB PO PRN (14:32)
[2017-10-01] MEDS ORDERED: Acetaminophen 325 MG TAB PO PRN (14:32)
[2017-10-01] MEDS ORDERED: Acetaminophen 650 MG Suppository PR PRN (14:32)
[2017-10-01 14:40] LABS: ALT (SGPT) 54 U/L (8-55); AST (SGOT) 46 U/L (5-34); Albumin 3.7 g/dL (3.5-5.0); Alkaline Phosphatase 131 U/L (40-150); Anion Gap 8 mmol/L (10-20); BUN (Urea Nitrogen) 12 mg/dL (7.0-18.7); Bilirubin, Total 0.4 mg/dL (0.2-1.2); Calc. Creatinine Clearance 117 mL/min (70-130); Calcium 8.7 mg/dL (7.8-10.44); Carbon Dioxide 12 mmol/L (22-29); Chloride 120 mmol/L (98-107); Estimated GFR-MDRD 70; Globulin 3.5 g/dL (2.4-3.5); Glucose 165 mg/dL (70-105); Phosphorus 2.6 mg/dL (2.3-4.7); Protein, Total 7.2 g/dL (6.0-8.3); Sodium 136 mmol/L (136-145)
[2017-10-01] MEDS: Gabapentin 300 MG CAP PO SCH ×2 (15:19→22:04)
[2017-10-01] MEDS: Lactated Ringer's 1,000 ML IV SCH (15:30)
[2017-10-01] MEDS: Lidocaine-Prilocaine 2.5% Cream 5 GM TUBE TOP SCH (16:44)
[2017-10-01] MEDS ORDERED: GoLYTELY 4,000 ml Bottle PO SCH (18:45)
[2017-10-01] MEDS: Insulin Regular 300 UNITS/3 ML VIAL SC SCH (19:29)
[2017-10-01] MEDS: Preparation H HC 1% Cream 26 GM TUBE TOP SCH (22:02)
[2017-10-01] MEDS ORDERED: Morphine IR Tab 15 MG TAB PO SCH (23:15)
[2017-10-02] MEDS: Lactated Ringer's 1,000 ML IV SCH ×2 (00:20→05:47)
--- NOTE | 2017-10-02 00:57 | CON ---
GI INPATIENT CONSULT NOTE DATE OF CONSULTATION: 10/01/2017 REASON FOR CONSULTATION: Chronic diarrhea. HISTORY OF PRESENT ILLNESS: Sadie Mederos is a 32-year-old woman previously seen by my GI colleague , Dr. Ramírez Rubin. She has a history of nonalcoholic steatohepatitis, diabetes with neuropath y. She was treated for H. pylori back in 2012. She also has a history of Dilcia esophagitis few ye ars ago, which was successfully treated. At one point, gastroparesis was suspected due to chronic sy mptoms of nausea, but she states nausea has not really been a problem for her recently. She says she was doing fine until about 1 month ago. At that time, she was in [place] and she came do wn fairly acutely with diarrhea, this is watery, urgent, quite frequent diarrhea. She states that sh e is having a bowel movement 2-3 times every hour and this includes through the night. She was initi ally treated with outpatient levofloxacin, but felt that her symptoms worsened on this. She was admi tted to the hospital last week with dehydration. At that time, full stool workup was performed inclu ding stool culture, E. coli, C. difficile, lactoferrin, and ova and parasites and all that was negati ve. TTG antibodies were negative. She was treated with Flagyl, but she states this did not really h elp either. There is no nausea or vomiting. She does have some associated cramping, abdominal pain which is generalized with the diarrhea. She is able to hold food down, no problem, but she feels lik e it goes right through her. She says there was a scant amount of blood within the past few weeks wi th some bowel movements, but she is attributing this to hemorrhoids. She has had some pain around th e anal area because of all this, diarrhea. She has never undergone a colonoscopy in the past. There is no family history of inflammatory bowel disease. REVIEW OF SYSTEMS: Full review of systems including constitutional, head, eyes, ears, nose, throat, GI, , cardiovascular, respiratory, musculoskeletal, and neurologic systems is negative except as no phyllis in the HPI. PAST MEDICAL HISTORY: Nonalcoholic steatohepatitis, diabetes with neuropathy, Dilcia esophagitis tr eated, H. pylori infection treated in 2012. FAMILY HISTORY: Her grandfather had colon cancer. SOCIAL HISTORY: She is a former smoker, quit a few months ago. No drug or alcohol use. ALLERGIES: CODEINE and TRAMADOL. OUTPATIENT MEDICATIONS: Gabapentin, morphine 15 mg p.o. at bedtime, insulin glargine, insulin regula r, Floranex 1 tab p.o. daily. PHYSICAL EXAMINATION: VITAL SIGNS: Temperature 98.4, pulse 99, blood pressure is 126/74, 97% oxygen saturation on room air . GENERAL: A 32-year-old woman sitting up in bed comfortably in no distress. SKIN: No jaundice, no rashes were palpable. EYES: No scleral icterus. Extraocular movements intact. ENT: Mucous membranes moist, no oral lesions. LYMPH: No submandibular, supraclavicular lymphadenopathy. THYROID: Nontender to palpation. HEART: Regular rate and rhythm. LUNGS: Clear to auscultation bilaterally. ABDOMEN: Bowel sounds present, soft, some mild tenderness to palpation diffusely, but no guarding, r ebound tenderness. EXTREMITIES: No peripheral edema. VESSELS: Radial pulses 2+ bilaterally. NEUROLOGIC: Cranial nerves II through XII intact bilaterally. No focal deficits. LABORATORY STUDIES: Hemoglobin 12.7, WBC 8.1, platelets 194, BUN 12, creatinine 0.92. LFTs normal w ith total bilirubin 0.4, alkaline phosphatase 131, AST 46, ALT 54, albumin 3.7. ASSESSMENT AND PLAN: 1. Chronic diarrhea. 2. Rectal bleeding. I did review her extensive stool workup performed last week, which was all essentially negative inclu ding notably the fecal lactoferrin. The acuity of onset of her symptoms certainly does seem most con sistent with an infectious source, but infectious workup has so far have been negative. Need to also consider onset of inflammatory bowel disease. At this time, I will reorder stool studies. We will also go ahead and prep her for a diagnostic colonoscopy tomorrow. We will plan to take random colon biopsies. Further recommendations following endoscopy.
[2017-10-02 05:00] LABS: ALT (SGPT) 43 U/L (8-55); AST (SGOT) 36 U/L (5-34); Albumin 3.1 g/dL (3.5-5.0); Alkaline Phosphatase 102 U/L (40-150); Anion Gap 8 mmol/L (10-20); BUN (Urea Nitrogen) 10 mg/dL (7.0-18.7); Bilirubin, Total 0.5 mg/dL (0.2-1.2); Calc. Creatinine Clearance 149 mL/min (70-130); Calcium 8.3 mg/dL (7.8-10.44); Carbon Dioxide 14 mmol/L (22-29); Chloride 120 mmol/L (98-107); Estimated GFR-MDRD Greater than 90; Globulin 2.9 g/dL (2.4-3.5); Glucose 73 mg/dL (70-105); Potassium 3.6 mmol/L (3.5-5.1); Sodium 138 mmol/L (136-145)
[2017-10-02] MEDS: Gabapentin 300 MG CAP PO SCH ×2 (05:47→14:28)
--- NOTE | 2017-10-02 06:34 | PDOC.FM ---
- Subjective Subjective: Patient doing well this AM. No significant overnight events. She had a lot of diarrhea which was worsened by the fact that she had to drink bowel prep for colonoscopy. She was getting ready to be wheeled down for her colonoscopy this AM when I went in to evaluate. - Objective MAR Reviewed: Yes Vital Signs & Weight: Vital Signs (12 hours) Temp Pulse Resp BP BP Pulse Ox 10/02/17 03:54 97.8 F 85 16 113/53 L 98 10/01/17 23:20 98.1 F 99 18 130/81 98 10/01/17 20:00 98.1 F 99 18 Weight Weight 84.992 kg I&O: 09/30/17 10/01/17 10/02/17 06:59 06:59 06:59 Intake Total 2837 Output Total 900 Balance 1937 Result Diagrams: 10/01/17 13:44 10/02/17 04:03 EKG Reviewed by me: No Radiology Reviewed by me: No Phys Exam - Physical Examination Constitutional: NAD HEENT: moist MMs Neck: supple Respiratory: clear to auscultation bilateral Cardiovascular: RRR, no significant murmur Gastrointestinal: soft, non-tender, no distention Musculoskeletal: no edema Neurological: non-focal, moves all 4 limbs Psychiatric: normal affect, A&O x 3 Skin: no rash, cap refill <2 seconds Dx/Plan (1) Intractable diarrhea Code(s): R19.7 - DIARRHEA, UNSPECIFIED Status: Acute (2) Hyperchloremic metabolic acidosis Code(s): E87.2 - ACIDOSIS Status: Acute (3) Insulin dependent type 2 diabetes mellitus, uncontrolled Code(s): E11.65 - TYPE 2 DIABETES MELLITUS WITH HYPERGLYCEMIA; 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 Pt hypotensive and tachycardic at outside clinic. - Bentyl and simethicone for abdominal cramping and gas pain - s/p 1 bolus LR and maintenance IVF w/LR @ 125 ml/hr - Stool culture, stool for E. coli, stool lactoferrin, C. difficile assays, O&P , and vibrio cholera tests all negative at recent hospitilization 2 days ago. Repeated per GI which were again negative. -ttG was negative at last visit - GI consulted; appreciate recs - Evidence of hyperchloremic metabolic acidosis - Afebrile - Plan for colonoscopy today to rule out IBD Hyperchloremic metabolic acidosis - 2/2 above Moderate dehydration - Pt has dry mucous membranes and hypotensive and tachycardic at outside clinic - Maintenance IVF with LR @ 125 ml/hr DM type II - Continue home insulin regimen - Mild SSI - CC diet - ACHS accuchecks Neuropathy - Continue home medications Hx of HTN - Monitor BP - Add medication if necessary Dispo: Patient going for colonoscopy this AM. Dispo pending colonoscopy results.
[2017-10-02] MEDS: Lidocaine-Prilocaine 2.5% Cream 5 GM TUBE TOP SCH (07:51)
[2017-10-02] MEDS: Preparation H HC 1% Cream 26 GM TUBE TOP SCH (07:51)
[2017-10-02] MEDS: Insulin Regular 300 UNITS/3 ML VIAL SC SCH ×2 (07:52→12:17)
[2017-10-02] MEDS ORDERED: Lactinex Tablet PO SCH (09:00)
[2017-10-02] MEDS ORDERED: Non-Formulary Item 1 EACH (Insulin Glargine,Hum.Rec.Anlog [Toujeo Solostar] 40 UNIT) SQ SCH ×2 (09:00)
[2017-10-02] MEDS ORDERED: Insulin Detemir 100 UNITS/ML 40 UNITS in Pre-Filled Syringe 1 EACH SC SCH (09:00)
[2017-10-02] MEDS ORDERED: Metamucil PACK PER TUBE SCH ×2 (09:00)
--- NOTE | 2017-10-02 10:36 | OP ---
DATE OF PROCEDURE: 10/02/2017 GI ENDOSCOPY NOTE SURGEON: Sanchez Watson M.D. PLANT WRAPPER SURGEON: None. PROCEDURE: Colonoscopy with biopsies. INDICATIONS: 1. Chronic diarrhea. 2. Rectal bleeding. MEDICATIONS: See anesthesia record. FINDINGS: After discussion of the risks, benefits and alternatives of the procedure, informed consen t was obtained and witnessed. Pre-endoscopic cardiopulmonary examination was satisfactory. Timeout was performed before sedation was achieved. Sedation was achieved with anesthesia assistance in the endoscopy unit. Digital rectal exam was performed which was unremarkable. A Pentax adult colonoscop e was inserted into the anus and passed forward to the cecum in the usual fashion. The cecal base wa s identified by the appendiceal orifice as well as ileocecal valve. The terminal ileum was intubated and the ileal mucosa appeared normal. The colonoscope was then slowly withdrawn in a gradual and ci rcumferential manner with careful examination of the colonic mucosa. The quality of the prep was poo r. There was a significant amount of semi-solid stool throughout the colon. This seems somewhat dis cordant with the patient's reported history of chronic watery diarrhea and having completed her bowel preparation. At any rate, I was able to visualize the vast majority of the colonic mucosa and when visualized the colonic mucosa appeared completely normal. Biopsies were obtained from the right colo n and left colon randomly to rule out microscopic colitis. Retroflexion in the rectum was normal. T he colonoscope was completely withdrawn and the patient allowed to recover. The patient tolerated th e procedure well. There were no immediate post-procedure complications. IMPRESSION: 1. Poor bowel preparation, with significant amount of semi-solid stool throughout the colon. 2. Normal colonic mucosa throughout with random colon biopsies obtained. 3. Normal terminal ileum. 4. Otherwise, normal examination. RECOMMENDATIONS: 1. Follow up results of colonic biopsies. 2. Advance diet. 3. The patient can use Imodium and dicyclomine as needed. 4. We will have her follow up in the GI Clinic in the next 2-[address] Rubin or one of our p ehsan assistants. 5. GI will sign off at this time. Please call back with any questions or concerns.
[2017-10-02] MEDS ORDERED: Sodium Chloride 0.45% 1,000 ML IV SCH (11:00)
[2017-10-02] MEDS ORDERED: Ondansetron HCl/PF 4 MG/2 ML Vial IVP PRN ×2 (11:11)
[2017-10-02] MEDS ORDERED: Promethazine HCl 25 MG/ML VIAL IM PRN ×2 (11:11)
[2017-10-02] MEDS ORDERED: Promethazine HCl 25 MG/ML VIAL SLOW IVP PRN ×2 (11:11)
--- NOTE | 2017-10-02 14:02 | ADD-PRG ---
DATE OF SERVICE: 10/02/2017 Ms. Mederos is a 32-year-old female who has recent travel to [place]. She returned with diarr hea, very profuse, watery and perhaps bloody. She was worked up and treated at [facility] and r eturned here with persistent diarrhea. Numerous stool studies for O&P and various bacterial pathogen s have proven negative. She has at this time just returned from a colonoscopy with the GI Service an d their reports are pending. We will continue to support her with fluids and electrolyte balance. S he has developed a hyperchloremic metabolic acidosis secondary to her diarrhea. We will reduce her I V fluids from D5 normal to D5 half normal. Otherwise, we will await further recommendations with GI. Probiotics have likewise been added.
[2017-10-02 15:36] VITALS: BP 152/83; TEMP 98.4
[2017-10-02] MEDS ORDERED: PROPOFOL 200 MG/20 ML VIAL ONE (17:01)
[2017-10-02] MEDS ORDERED: Lidocaine 1% PF 5 ML VIAL ONE (17:01)
[2017-10-02] MEDS ORDERED: Morphine IR Tab 15 MG TAB PO SCH (21:00)
--- NOTE | 2017-10-02 22:28 | DIS-2 ---
DATE OF ADMISSION: 10/01/2017 DATE OF DISCHARGE: 10/02/2017 ADMITTING ATTENDING: Dr. Isamar Shields. DISCHARGE ATTENDING: Dr. Sim Smith. RESIDENT: Dr. Danielle Hernandez. CONSULTS: Dr. Watson, Gastroenterology. PROCEDURES: Colonoscopy with biopsies and poor bowel preparation with significant amount of semi-gaby id stool throughout the colon. Normal colonic mucosa throughout, with random colon biopsies obtained . Normal terminal ileum, otherwise, normal exam. PRIMARY DIAGNOSES: 1. Intractable diarrhea of unknown origin. 2. Moderate dehydration. SECONDARY DIAGNOSES: 1. Neuropathy. 2. History of hypertension. DISCHARGE MEDICATIONS: 1. Bentyl 10 mg oral 4 times daily as needed. 2. Lomotil 1 tab oral every 6 hours as needed. 3. Hydrocortisone 1% cream 1 gram topical twice daily. 4. Metamucil packet 1 packet per tube daily. 5. Simethicone 80 mg oral after meals and at bedtime as needed. 6. Gabapentin 600 mg every 8 hours. 7. Morphine sulfate 50 mg oral at bedtime. 8. Insulin regular 30 units subcutaneous before meals. 9. Insulin glargine 40 units subcutaneous daily. 10. Lactobacillus 1 tablet oral daily. DISCONTINUED MEDICATIONS: None. HISTORY OF PRESENT ILLNESS AND HOSPITAL COURSE: This is a 32-year-old female with past medical histo ry of uncontrolled diabetes mellitus type 2 and neuropathy that presents with a 1.5-month history of watery and bloody diarrhea and she was recently seen in clinic and sent over for dehydration secondar y to diarrhea. Stool studies were performed at that time to include a lactoferrin, Campylobacter ant igen, Shigella toxin, stool culture, O&Ps which is ova and parasites, and C. difficile toxin and anti gen, all of which were negative. 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 That result has since been obta ined and was negative. Patient continues to have diarrhea leading to dehydration. Patient was seen in clinic again on the day of admission was sent over for dehydration causing elevat ed heart rate and some hypertension. She was being fluid resuscitated and symptoms have since improv ed. A colonoscopy was performed by Dr. Watson, which actually showed some formed stools and poor bowel prep. There were no abnormalities seen indicating any evidence of inflammatory bowel disease. Liang tionally, biopsies were taken to further clarify that this is normal mucosa. Patient does continue t o have diarrhea. It was recommended that she continued to take Lomotil to help lightened the diarrhe a and emergency precautions were given to return to clinic. Should the diarrhea cause symptoms of de hydration, as she has presented previously. Patient was advised to talk with physician about getting fluids at procedure clinic should she return with dehydration. Patient will be notified of biopsy r esults once they are obtained and any further changes to management will be made at that time. Due t o negative lactoferrin, other negative stool study is not presumed but this current episode of diarrh ea is related to an infectious etiology. Due to the normal nature of the colonoscopy, it is also lik benjamin that this is not related to inflammatory bowel disease. In her differential thus include an irri table bowel syndrome with diarrhea predominant type. If diarrhea does continue to persist, it may be necessary to consider treatment for IBS as an outpatient. DISPOSITION: Stable. DISCHARGE INSTRUCTIONS: 1. Location: Home. 2. Activity: No restriction. 3. Diet: Consistent carbohydrate diet. 4. Followup: Patient to follow up with primary care physician within 7 days of discharge from the ospital. Additionally, she was advised to return to the ER or clinic should she have symptoms of deh ydration. She is encouraged to drink plenty of fluids and to avoid any sugar-free beverages as well as juices, which could further worsen her diarrhea.
[2017-10-08 13:19] LABS: Routine O & P Final report (.)
== END 2017-10-02 16:30 | disposition home or self-care (01) ==
LOC: 2SW 12:18
PROVIDERS: ADMIT Family Medicine; ATTEND Family Medicine
PROC: 0DBG8ZX Excision of Left Large Intestine, Via Natural or Artificial Opening Endoscopic, Diagnostic (ICD-10-PCS; principal; 2017-10-01)
PROC: 0DBF8ZX Excision of Right Large Intestine, Via Natural or Artificial Opening Endoscopic, Diagnostic (ICD-10-PCS; 2017-10-01)
DX: K52.89 Other specified noninfective gastroenteritis and colitis (principal); E86.0 Dehydration; E11.40 Type 2 diabetes mellitus with diabetic neuropathy, unspecified; I10 Essential (primary) hypertension; E11.65 Type 2 diabetes mellitus with hyperglycemia; K64.4 Residual hemorrhoidal skin tags; K75.81 Nonalcoholic steatohepatitis (NASH); E87.2 Acidosis; Z79.4 Long term (current) use of insulin; Z79.891 Long term (current) use of opiate analgesic; Z79.899 Other long term (current) drug therapy; Z88.5 Allergy status to narcotic agent; Z98.891 History of uterine scar from previous surgery; Z98.890 Other specified postprocedural states; Z87.891 Personal history of nicotine dependence
CPT/HCPCS: 36415; 36416; 80053; 83630; 84100; 85025; 87045; 87046; 87177; 87324; 87328; 87329; 87449; 87899; 88305; 96360; 96361; G0378; J1815; J2001; J2704

== ENCOUNTER 2017-11-04 10:46 | Outpatient (CLI) | payer MEDICAID | END 2017-11-04 10:47 | disposition home or self-care (01) | LOC: BICRAD 10:46 | PROVIDERS: ATTEND Family Medicine | DX: R19.7 Diarrhea, unspecified (principal) | CPT/HCPCS: 74022 ==

== ENCOUNTER 2018-07-02 07:16 | Outpatient (CLI) | payer MEDICAID ==
--- NOTE | 2018-07-02 08:06 | ULT ---
HEPATIC ULTRASOUND WITH DOPPLER: Date: 07/02/18 PROVIDED CLINICAL HISTORY: Elevated LFTs. FINDINGS: The visualized portions of the pancreas and IVC appear normal. The liver demonstrates no evidence for mass or intrahepatic biliary ductal dilatation. Increased echogenicity of the liver with respect to the right kidney may reflect fatty infiltration. Gallbladder demonstrates no stones, wall thickening, or pericholecystic fluid. Common duct is not dilated. Spleen is prominent, measuring about 12.6 x 12 .5 x 3.9 cm. Color Doppler and spectral analysis of the hepatic portal, hepatic venous, hepatic arterial splenic v enous, and splenic arterial waveforms demonstrates appropriate direction of flow. IMPRESSION: 1. Fatty infiltration of the liver. 2. Prominent spleen size. 3. Normal hepatic Doppler. POS: OFF
== END 2018-07-02 07:17 | disposition home or self-care (01) ==
LOC: BICULT 07:16
PROVIDERS: ATTEND Internal Medicine Gastroenterology
DX: E11.65 Type 2 diabetes mellitus with hyperglycemia (principal); K75.81 Nonalcoholic steatohepatitis (NASH); R13.10 Dysphagia, unspecified; K76.0 Fatty (change of) liver, not elsewhere classified
CPT/HCPCS: 76705

== ENCOUNTER 2019-04-30 14:14 | Emergency (ER) | payer MEDICAID ==
[2019-04-30] MEDS ORDERED: Lidocaine 1% w/Epinephrine 1:100K 20 ML VIAL ONE (15:31)
[2019-04-30] MEDS ORDERED: Ketorolac Tromethamine 30 MG/ML VIAL ONE (15:59)
[2019-04-30] MEDS ORDERED: Morphine 4 MG/ML VIAL ONE (15:59)
== END 2019-04-30 17:15 | disposition home or self-care (01) ==
LOC: ERS 14:14
DX: L02.214 Cutaneous abscess of groin (principal); L03.314 Cellulitis of groin; E11.40 Type 2 diabetes mellitus with diabetic neuropathy, unspecified; F41.9 Anxiety disorder, unspecified; F32.9 Major depressive disorder, single episode, unspecified; F17.210 Nicotine dependence, cigarettes, uncomplicated; Z79.899 Other long term (current) drug therapy; Z79.891 Long term (current) use of opiate analgesic; Z79.4 Long term (current) use of insulin
CPT/HCPCS: 10061; 87070; 87205; 96372; J1885; J2270

== ENCOUNTER 2019-10-27 16:19 | Emergency (ER) | payer MEDICAID ==
--- NOTE | 2019-10-27 16:52 | RAD ---
Chest one view HISTORY: Chest pain. COMPARISON: 03/23/2017. FINDINGS: Cardiac silhouette is magnified by projection. Pulmonary vasculature is unremarkable. Mediastinum is midline. No lobar consolidation or evidence of pneumothorax. monitoring coordinator leads overlie the chest. IMPRESSION : No active cardiopulmonary abnormalities are demonstrated.
[2019-10-27 16:55] LABS: #Basophils 0.1 thou/uL (0.0-0.2); #Lymphocytes 1.6 thou/uL (1.20-3.40); #Monocytes 0.6 thou/uL (0.11-0.59); #Neutrophils 5.5 thou/uL (1.40-6.50); %Basophils 0.7 % (0.0-1.0); %Eosinophils 0.2 % (0.0-10.0); %Lymphocytes 20.8 % (21.0-51.0); %Monocytes 7.6 % (0.0-10.0); %Neutrophils 70.7 % (42.0-75.0); Hemoglobin 11.8 g/dL (12.0-16.0); Mean Corpuscular HGB CONC 32.3 g/dL (32.0-36.0); Mean Corpuscular Hemoglobin 26.9 pg (27.0-31.0); Mean Corpuscular Volume 83.5 fL (78.0-98.0); Mean Platelet Volume 8.1 fL (7.4-10.4); Platelet Count 235 thou/uL (130-400); RBC Distribution Width 13.4 % (11.5-14.5); Red Blood Cell (RBC) Count 4.39 mill/uL (4.20-5.40); White Blood Cell (WBC) Count 7.8 thou/uL (4.8-10.8)
[2019-10-27 17:15] LABS: Bilirubin, Total 0.5 mg/dL (0.2-1.2)
[2019-10-27 17:18] LABS: ALT (SGPT) 35 U/L (8-55); AST (SGOT) 34 U/L (5-34); Albumin 3.7 g/dL (3.5-5.0); Alkaline Phosphatase 165 U/L (40-110); Anion Gap 14 mmol/L (10-20); BUN (Urea Nitrogen) 13 mg/dL (7.0-18.7); CK (CPK) 50 U/L (29-168); Calc. Creatinine Clearance 0 mL/min (70-130); Calcium 8.8 mg/dL (7.8-10.44); Carbon Dioxide 23 mmol/L (22-29); Chloride 99 mmol/L (98-107); Estimated GFR-MDRD 44; Globulin 4.2 g/dL (2.4-3.5); Glucose 488 mg/dL (70-105); Potassium 4.2 mmol/L (3.5-5.1); Protein, Total 7.9 g/dL (6.0-8.3); Sodium 132 mmol/L (136-145)
--- NOTE | 2019-10-29 15:10 | EKG ---
Test Reason : Blood Pressure : / mmHG Vent. Rate : 095 BPM Atrial Rate : 095 BPM P-R Int : 150 ms QRS Dur : 088 ms QT Int : 360 ms P-R-T Axes : 019 -13 008 degrees QTc Int : 452 ms Normal sinus rhythm Normal ECG Confirmed by REYES ENNIS, TOMMY Monsivais ([id number]), assignment desk editor BIJAN VELASCO ([id number]) on 10/29/2019 3:09:58 PM Referred By: Confirmed By:TOMMY CHAMBERS MD
== END 2019-10-27 18:18 | disposition home or self-care (01) ==
LOC: ERS 16:19
DX: R20.2 Paresthesia of skin (principal); F41.9 Anxiety disorder, unspecified; F32.9 Major depressive disorder, single episode, unspecified; E11.40 Type 2 diabetes mellitus with diabetic neuropathy, unspecified
CPT/HCPCS: 36415; 71045; 80053; 82550; 84484; 85025; 93005

== ENCOUNTER 2019-11-26 12:05 | Emergency (ER) | payer MEDICAID ==
[2019-11-26] MEDS ORDERED: Lidocaine 1% w/Epinephrine 1:100K 20 ML VIAL ONE ×2 (13:35→13:36)
[2019-11-26] MEDS ORDERED: Ibuprofen 200 MG TAB ONE (14:01)
[2019-11-26] MEDS ORDERED: Cephalexin 250 MG CAP ONE (14:01)
[2019-11-26] MEDS ORDERED: Sulfameth/Trimethoprim DS 800-160mg TAB ONE (14:01)
[2019-11-26] MEDS ORDERED: Adacel (T-DAP) 0.5 ML SYRINGE ONE (14:02)
[2019-11-26] MEDS ORDERED: Acetaminophen/Codeine 30-300mg Tablet ONE (14:25)
== END 2019-11-26 15:01 | disposition home or self-care (01) ==
LOC: ERS 12:05
DX: L02.411 Cutaneous abscess of right axilla (principal); E11.40 Type 2 diabetes mellitus with diabetic neuropathy, unspecified; F41.9 Anxiety disorder, unspecified; F32.9 Major depressive disorder, single episode, unspecified; Z79.4 Long term (current) use of insulin; Z79.899 Other long term (current) drug therapy
CPT/HCPCS: 10160; 90471; 90715

== ENCOUNTER 2020-02-13 15:56 | Emergency (ER) | payer MEDICAID | END 2020-02-13 16:54 | disposition home or self-care (01) | LOC: ERS 15:56 | DX: S90.821A Blister (nonthermal), right foot, initial encounter (principal); E11.40 Type 2 diabetes mellitus with diabetic neuropathy, unspecified; F41.9 Anxiety disorder, unspecified; F32.9 Major depressive disorder, single episode, unspecified; F17.200 Nicotine dependence, unspecified, uncomplicated; Z79.4 Long term (current) use of insulin; Z79.899 Other long term (current) drug therapy | CPT/HCPCS: 99283 ==

== ENCOUNTER 2020-03-29 15:58 | Observation (INO) | payer MEDICAID, OTHER ==
[2020-03-29] MEDS ORDERED: Acetaminophen 500 MG TAB ONE (16:23)
[2020-03-29 16:34] LABS: #Basophils 0.1 thou/uL (0.0-0.2); #Monocytes 0.5 thou/uL (0.11-0.59); #Neutrophils 5.4 thou/uL (1.40-6.50); %Basophils 0.8 % (0.0-1.0); %Eosinophils 0.4 % (0.0-10.0); %Lymphocytes 24.5 % (21.0-51.0); %Monocytes 6.8 % (0.0-10.0); %Neutrophils 67.5 % (42.0-75.0); Hemoglobin 11.2 g/dL (12.0-16.0); Mean Corpuscular HGB CONC 33.4 g/dL (32.0-36.0); Mean Corpuscular Hemoglobin 26.5 pg (27.0-31.0); Mean Corpuscular Volume 79.3 fL (78.0-98.0); Mean Platelet Volume 8.5 fL (7.4-10.4); Platelet Count 232 thou/uL (130-400); RBC Distribution Width 13.4 % (11.5-14.5); Red Blood Cell (RBC) Count 4.22 mill/uL (4.20-5.40)
[2020-03-29 16:36] LABS: Base Excess-Venous 1.9 mmol/L (-2.0 to 3.0); Bicarbonate (HCO3v) 26.5 mmol/L (22.0-28.0); CO2 Tension (PvCO2) 40.3 mmHg (40.0-50.0); Calcium, Ionized 1.07 mmol/L (1.15-1.33); Chloride 97 mmol/L (98-107); Hemoglobin - Calc 11.2 g/dL (12.0-16.0); Sodium 134 mmol/L (138-145); T. Carbon Dioxide 27.7 mmol/L (22.0-28.0); vO2 Saturation-calc 94.1 % (60.0-85.0)
--- NOTE | 2020-03-29 16:53 | RAD ---
Exam: Chest one view HISTORY:History: Syncope Comparison: 10/27/2019 FINDINGS: Cardiac silhouette: Normal Aorta: Unremarkable Pulmonary vessels: Normal Costophrenic angles: Clear LUNGS: No masses or consolidation. Pneumothorax: None Osseous abnormalities: None IMPRESSION: No acute cardiopulmonary process.
--- NOTE | 2020-03-29 16:53 | RAD ---
LEFT WRIST 3 VIEWS: HISTORY: Left wrist pain, injury FINDINGS: No acute fracture or dislocation is identified. If symptoms do not improve, a follow-up exam should be obtained in 7-10 days.
[2020-03-29 16:54] LABS: ALT (SGPT) 25 U/L (8-55); AST (SGOT) 19 U/L (5-34); Albumin 3.4 g/dL (3.5-5.0); Alkaline Phosphatase 158 U/L (40-110); Anion Gap 12 mmol/L (10-20); BUN (Urea Nitrogen) 14 mg/dL (7.0-18.7); Bilirubin, Total 0.4 mg/dL (0.2-1.2); Calc. Creatinine Clearance 0 mL/min (70-130); Calcium 8.6 mg/dL (7.8-10.44); Carbon Dioxide 25 mmol/L (22-29); Chloride 96 mmol/L (98-107); Estimated GFR-MDRD 45; Glucose 502 mg/dL (70-105); Lipase 34 U/L (8-78); Potassium 4.2 mmol/L (3.5-5.1); Protein, Total 7.4 g/dL (6.0-8.3); Sodium 129 mmol/L (136-145)
--- NOTE | 2020-03-29 16:55 | RAD ---
XR Hand Lt 3 View STANDARD HISTORY: Fall, left hand pain FINDINGS: No fracture or dislocation is identified.
[2020-03-29 17:34] LABS: Bilirubin Negative (Negative); Blood, Urine Negative (Negative); Clarity Clear (Clear); Glucose, Urine (Dipstick) Greater than 1000 mg/dL (Negative); Ketone, Urine Negative (Negative); Leukocyte Negative Leu/uL (Negative); Nitrite Negative (Negative); Protein, Urine (Dipstick) Negative (Neg-Trace); Specific Gravity, Urine 1.031 (1.002-1.036); Urobilinogen Normal mg/dL (Less than 2); pH, Urine 5.5 (5.0-9.0)
--- NOTE | 2020-03-29 18:43 | PDOC.FPRHP ---
- History of Present Illness Chief Complaint: hyperglycemia, malaise, syncope History of Present Illness: Pt has had dizziness for 5mo nearly everyday. Occurs when she stands up, as in standing too long in the shower. Occurs with standing in a long line or if it's hot. Lasts a few seconds. Assoc sxs include generalized weakness, feelings of anxiety. No N/V. Today, dizziness was worse, vasovagal sxs, had syncopal episod e, hit head. No hx of heart murmur or problems. Has been drinking lots of water with polyphagia and polydipsia, increase in neuropathy. Also has gastroparesis. Has had poorly controlled sugars at home. Checks sugars once per week because can't afford the strips. The lowest she has seen in 160 and highest of 288. Takes Humalin 30u every meal. Toujeo 90u once a day, sometimes morning sometimes night. Taking as prescribed. Unsure of last A1c, thinks it was last checked in Jun. Diagnosed with DM that started as gestational DM in 2001. 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 Endorses 20min episodes of CP that are centrally located, without radiation, which she describes as sharp. No clear instigating factor. She is unsure if is related to anxiety. Heart score of 3. ED Course: 1g Tylenol, 1L NS bolus - Allergies/Adverse Reactions Allergies Allergy/AdvReac Type Severity Reaction Status Date / Time codeine Allergy Verified 03/29/20 22:32 tramadol Allergy Rash Verified 03/29/20 22:32 - Home Medications Medication Instructions Recorded Confirmed Type Gabapentin [Neurontin] 600 mg PO Q8HR 01/09/15 03/29/20 History Insulin Glargine,Hum.Rec.Anlog 90 unit SQ DAILY 09/25/17 03/30/20 History [Toujeo Solostar] Insulin Regular [HumuLIN R Vial] 30 unit SC AC 09/25/17 03/29/20 History - History PMH: T2DM, HLD PSH: , liver bx d/t fatty liver All: Tramadol - itching Fam Hx: MGF lung cancer 2/2 smoking, Dad DM Social: Smokes 1pack for 4-5 days x 3yrs. No EtOH for 4yrs. 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 Related to DM) ENT: denies: nasal congestion, rhinorrhea Respiratory: reports: shortness of breath, exercise intolerance. denies: cough Cardiovascular: reports: chest pain. denies: palpitation, edema, orthopnea Gastrointestinal: reports: constipation. denies: nausea, vomiting, diarrhea, abdominal pain Genitourinary: reports: polyuria. denies: dysuria Skin: denies: rashes, itching Neurological: reports: numbness, syncope, weakness Psychological: reports: anxiety, depression - Vital signs BP: 114/71 HR: 94 RR: 14 Tmax: 98.0F Pox: 100% on RA Wt: 88.5kg - Physical Exam Constitutional: NAD, awake, alert and oriented, well developed (Obese) HEENT: normocephalic and atraumatic, grossly normal vision, grossly normal hearing Neck: supple, FROM Chest: no-tender to palpation Heart: RRR (difficult to auscultate likely 2/2 hyperinflation), normal S1/S2, no murmurs/rubs/gallops, pulses present (2+ radial and dp b/l), no edema Lungs: no respiratory distress, no wheezing -Lungs: Poor air movement. Minimal crackles b/l Abdomen: soft, non-tender, bowel sounds present, no masses/distention Musculoskeletal: normal structure, normal tone, ROM grossly normal Neurological: no focal deficit Skin: no rash/lesions Heme/Lymphatic: no unusual bruising or bleeding Psychiatric: normal mood and affect, good judgment and insight, intact recent and remote memory FMR H&P: Results - Labs Result Diagrams: 03/30/20 04:19 03/30/20 04:19 Lab results: WBC 8.0 thou/uL (4.8-10.8) 03/29/20 16:23 Hgb 11.2 g/dL (12.0-16.0) L 03/29/20 16:23 Hct 33.5 % (36.0-47.0) L 03/29/20 16:23 MCV 79.3 fL (78.0-98.0) 03/29/20 16:23 Plt Count 232 thou/uL (130-400) 03/29/20 16:23 Neutrophils % 67.5 % (42.0-75.0) 03/29/20 16:23 VBG pCO2 40.3 mmHg (40.0-50.0) 03/29/20 16:32 VBG pO2 69.7 mmHg (35.0-45.0) H 03/29/20 16:32 Sodium 129 mmol/L (136-145) L 03/29/20 16:23 Potassium 4.2 mmol/L (3.5-5.1) 03/29/20 16:23 Chloride 96 mmol/L (98-107) L 03/29/20 16:23 Carbon Dioxide 25 mmol/L (22-29) 03/29/20 16:23 BUN 14 mg/dL (7.0-18.7) 03/29/20 16:23 Creatinine 1.33 mg/dL (0.6-1.1) H 03/29/20 16:23 Glucose 502 mg/dL (70-105) H 03/29/20 16:23 Calcium 8.6 mg/dL (7.8-10.44) 03/29/20 16:23 Total Bilirubin 0.4 mg/dL (0.2-1.2) 03/29/20 16:23 AST 19 U/L (5-34) 03/29/20 16:23 ALT 25 U/L (8-55) 03/29/20 16:23 Alkaline Phosphatase 158 U/L (40-110) H 03/29/20 16:23 Serum Total Protein 7.4 g/dL (6.0-8.3) 03/29/20 16:23 Albumin 3.4 g/dL (3.5-5.0) L 03/29/20 16:23 Lipase 34 U/L (8-78) 03/29/20 16:23 Urine Ketones Negative mg/dL (Negative) 03/29/20 17:13 Urine Blood Negative (Negative) 03/29/20 17:13 Urine Nitrite Negative (Negative) 03/29/20 17:13 Ur Leukocyte Esterase Negative Deejay/uL (Negative) 03/29/20 17:13 FMR H&P: A/P - Plan This is a 35F presenting after a syncopal episode Syncopal episode - Sxs sound vasovagal in nature: occur when standing too long, getting up too quickly, when it's hot - Dizziness, SOB, anxiety, tunnel vision - Syncopal episode today ~noon where she hit her head CT head w/o contrast ordered - Orthostatic vitals ordered - No murmur appreciable on exam - EKG showed nonspecific ST changes Uncontrolled, IDDM2 - A1c 14 last month - Complications include neuropathy, gastroparesis, retinopathy - Takes Toujeo 90u daily and 30u Humalin with meals Started on home dose of Toujeo and aggressive SSI - Resume gabapentin - Glucose ACHS checks - Hypoglycemia protocol in place - Order for DM education R heel ulcer - Measure ~3x3cm - Has neuropathy 2/2 DM - Has appt with lieutenant fire fighter next week - Wound care consulted Chest pain - 20min episodes, centrally located, sharp, nonradiating, with no clear inciting factor - Heart score of 3 - Trop <0.01 Will trend trops Tobacco use - 1 pack lasts her 4-5 days x 3yrs - Smoking cessation education - Denies hx of COPD. Mild crackles on exam, possibly atelectasis Dispo: tele obs, LOS >24h IVF: None Diet: CC 2000cal DVT Ppx: SCDs GI Ppx: None PCP: JESSE Aggarwal Code: Full FMR H&P: Upper Level - Plan Date/Time: 03/29/201841 IEnid MD, have evaluated this patient and agree with findings/plan as outlined by project internship resident. Pertinent changes/additions are listed here. HPI: 35 yo F with PMH of IDDM2 with syncope, passed out around lunch time. She reports she was walking to the fridge, and had pre-syncopal symptoms of tunnel vision, fullness in her ears. She passed out and woke up on the ground, states she hit her head. She reports she has these episodes daily for the past 5 months. She reports decreased appetite, polyuria, and polydipsia. Denies abd pain, nausea/vomiting. Reports chest pain that is sharp and central, non- radiating, lasting about 20 minutes that she associates with her anxiety. She reports she takes her toujeou 90 u daily, and takes 35 u of short acting insulin twice daily with meals. She only checks her BS once weekly as she cannot afford the strips, reports lowest BS of 160, normally they run 200s. ED: Tylenol, 1 L NS Labs: UA >1000 glucose, trop neg, Na 129, Chl 96, Cr 1.33 (baseline 0.75); glucose 502, alk phos 158 XR Hand Lt 3 view, L wrist 3 views no fracture; CXR no acute process VBG: pH 7.425, CO2 40.3, O2 69.7, WBC 8.0, Hgb 11.2 Physical exam: Vitals: BP 114/71, R 14, P 94, T 98.0, 100 % on RA, wt 88.45 kg Cardiac: RRR, no murmurs Lungs: mild expiratory crackles at L lung base Abd: soft, +BS, nontender Extremities: ulcer to RLE, no erythema or exudate Neuro: CN2-12 grossly normal, no focal deficits A/P: #Syncope -EKG shows NSR, nonspecific T wave changes -Tele obs for monitoring -Sounds to be orthostatic, possibly 2/2 dehydration; orthostatics pending -Reports she hit her head on the floor, Head CT pending. #Atypical chest pain -trend trop -Heart score of 3, do not plan to do stress test at this time #IDDM2 -A1C of 14.3 1 month ago in clinic -Continue Toujeo 90 qd -Aggressive SSI -Pt needs close outpt follow up #Diabetic Neuropathy -Continue gabapentin -pt reports she takes 1200 mg BID, clinic chart prescribed 600 mg TID #Anxiety and Depression -pt reports she is not taking the prescribed citalopram, did not try taking it for 4-6 weeks before stopping #Rt heal ulcer -Wound care consulted #Obesity -BMI 30 #Tobacco abuse -1/3 PPD for 3 years, 1 PY PCP: Dr. Aggarwal Code: Full DVT ppx: SCDs Diet: CC Dispo: Tele obs for overnight monitoring and blood sugar management, hopefully home tomorrow with close follow up out patient [facility]. Aly العلي MD PGY3 Addendum - Attending - Attending Attestation Date/Time: 03/30/20 [id number] I personally evaluated the patient and discussed the management with Dr. Mara Perkins I agree with the History, Examination, Assessment and Plan documented above with any addition or exceptions noted below -35 yo F with PMH of IDDM2 with syncope, passed out around lunch time. She reports she was walking to the fridge, and had pre-syncopal symptoms of tunnel vision, fullness in her ears. She passed out and woke up on the ground, states she hit her head. She reports she has these episodes daily for the past 5 months. She reports decreased appetite, polyuria, and polydipsia. Denies abd pain, nausea/vomiting. Reports chest pain that is sharp and central, non-radiating, lasting about 20 minutes that she associates with her anxiety. PMH/PSH/Meds/SH reviewed and agree with resident's documentation. Afebrile VSS Exam repeated by me and agree with resident's findings. WBC=8.0, H/H=11.2/33.5, Kzj=471, Ci=112, K=4.2, Cl=96, CO2=25, BUN/Cr=14/1.33, Gluc= 502, trop<0.010 x 2. EKG- NSR, nonspecific ST changes. A/P: 1) Syncope - orthostatic in nature- will check orthostatics vitals; continue IVF. Will check echo. 2) DM - poorly controlled; continue home meds and adjusted as needed.
[2020-03-29] MEDS ORDERED: Dextrose 5% in Water 1,000 ML IV PRN (19:59)
[2020-03-29] MEDS ORDERED: Dextrose 50% Abboject 50 ML SYRINGE SLOW IVP PRN (19:59)
[2020-03-29] MEDS ORDERED: Acetaminophen 325 MG TAB PO PRN (19:59)
--- NOTE | 2020-03-29 21:05 | CT ---
CT OF BRAIN PERFORMED WITHOUT CONTRAST ENHANCEMENT: 03/29/20 HISTORY: Syncope. Patient fell hitting head. The ventricular and cisternal system is within normal limits. No signs of intracerebral hemorrhage or extra-axial fluid collections. Mastoid air cells and visualized sinuses are clear. IMPRESSION: No acute intracranial abnormalities. POS: RASHMI
[2020-03-29] MEDS ORDERED: Melatonin 3 MG TAB PO PRN (21:17)
[2020-03-29] MEDS ORDERED: HumaLOG 300 UNITS/3 ML VIAL SC PRN (21:17)
[2020-03-29] MEDS ORDERED: hydrOXYzine 25 MG TAB PO PRN (21:17)
[2020-03-29] MEDS: Gabapentin 300 MG CAP PO SCH (21:46)
[2020-03-29] MEDS: Sodium Chloride 0.9% 1,000 ML IV SCH (21:46)
[2020-03-29 22:27] LABS: Troponin I Less than 0.010 ng/mL (< 0.028)
[2020-03-29 22:32] VITALS: BMI 32.6
[2020-03-30 01:08] LABS: Troponin I Less than 0.010 ng/mL (< 0.028)
[2020-03-30 04:51] LABS: #Basophils 0.1 thou/uL (0.0-0.2); #Eosinphils 0.1 thou/uL (0.0-0.7); #Lymphocytes 3.1 thou/uL (1.20-3.40); #Monocytes 0.7 thou/uL (0.11-0.59); #Neutrophils 2.6 thou/uL (1.40-6.50); %Eosinophils 1.3 % (0.0-10.0); %Lymphocytes 46.9 % (21.0-51.0); %Monocytes 10.2 % (0.0-10.0); %Neutrophils 40.6 % (42.0-75.0); Hemoglobin 9.3 g/dL (12.0-16.0); Mean Corpuscular HGB CONC 33.1 g/dL (32.0-36.0); Mean Corpuscular Hemoglobin 26.3 pg (27.0-31.0); Mean Corpuscular Volume 79.6 fL (78.0-98.0); Mean Platelet Volume 8.5 fL (7.4-10.4); Platelet Count 197 thou/uL (130-400); RBC Distribution Width 13.5 % (11.5-14.5); Red Blood Cell (RBC) Count 3.52 mill/uL (4.20-5.40); White Blood Cell (WBC) Count 6.5 thou/uL (4.8-10.8)
[2020-03-30] MEDS: Sodium Chloride 0.9% 1,000 ML IV SCH (05:24)
[2020-03-30 05:28] LABS: ALT (SGPT) 20 U/L (8-55); AST (SGOT) 17 U/L (5-34); Albumin 2.8 g/dL (3.5-5.0); Alkaline Phosphatase 122 U/L (40-110); Anion Gap 11 mmol/L (10-20); BUN (Urea Nitrogen) 13 mg/dL (7.0-18.7); Bilirubin, Total 0.3 mg/dL (0.2-1.2); Calc. Creatinine Clearance 115 mL/min (70-130); Calcium 8.1 mg/dL (7.8-10.44); Carbon Dioxide 23 mmol/L (22-29); Chloride 104 mmol/L (98-107); Estimated GFR-MDRD 72; Globulin 3.5 g/dL (2.4-3.5); Glucose 286 mg/dL (70-105); Potassium 4.1 mmol/L (3.5-5.1); Protein, Total 6.3 g/dL (6.0-8.3); Sodium 134 mmol/L (136-145)
[2020-03-30] MEDS: HumaLOG 300 UNITS/3 ML VIAL SC PRN ×2 (05:43→11:23)
--- NOTE | 2020-03-30 06:55 | PDOC.FM ---
- Subjective Subjective: Patient was resting in bed at the time of evaluation. She denied any acute overnight events, to include chest pain, SOB or N/V. Per chart review, patient demonstrated orthostatic hypotension x1 during AM vitals. - Objective Vital Signs & Weight: Vital Signs (12 hours) Temp Pulse Resp BP Pulse Ox 03/30/20 05:14 98.4 F 84 14 120/73 97 03/29/20 23:05 102 H 03/29/20 19:27 98.0 F 112 H 15 123/75 98 Weight Weight 83.7 kg I&O: 03/28/20 03/29/20 03/30/20 06:59 06:59 06:59 Intake Total 2220 Balance 2220 Result Diagrams: 03/30/20 04:19 03/30/20 04:19 Phys Exam - Physical Examination Constitutional: NAD HEENT: moist MMs Neck: supple, full ROM Respiratory: no wheezing, no rales, no rhonchi, clear to auscultation bilateral Cardiovascular: RRR, no significant murmur, no rub Gastrointestinal: soft, non-tender, no distention, positive bowel sounds Musculoskeletal: no edema, pulses present Neurological: non-focal, moves all 4 limbs Psychiatric: normal affect Deviation from normal: Diabetic foot ulcer on right heal - consistent with previous eval in clinic Dx/Plan (1) Diabetic ulcer of ankle Code(s): E11.622 - TYPE 2 DIABETES MELLITUS WITH OTHER SKIN ULCER; L97.309 - NON-PRESSURE CHRONIC ULCER OF UNSP ANKLE WITH UNSP SEVERITY Status: Acute (2) Syncope Code(s): R55 - SYNCOPE AND COLLAPSE Status: Acute (3) Hyperglycemia Code(s): R73.9 - HYPERGLYCEMIA, UNSPECIFIED Status: Chronic (4) Insulin dependent type 2 diabetes mellitus, uncontrolled Code(s): E11.65 - TYPE 2 DIABETES MELLITUS WITH HYPERGLYCEMIA; Z79.4 - OPERATOR PREFINISH (CURRENT) USE OF INSULIN Status: Chronic (5) Neuropathy Code(s): G62.9 - POLYNEUROPATHY, UNSPECIFIED Status: Chronic - Plan Plan: Patient is a 35 y/o female with a PMH most notable for uncontrolled DM2 who presented to the hospital for evaluation after a syncopal episode. 1. Syncope -Patient reports multiple near-syncopal episodes almost daily for past 5M - states that she actually had a true syncopal episode on 03/29 -Per Resident Night Team, patient's symptoms appear vasovagal in nature - and are typically associated with dizziness, SOB, anxiety and tunnel vision if she rises from a seated position too fast or stands for an extended period of time -CT Brain: Pending -Echo: Pending -EKG: Non-Specific Changes -Will trend Orthostatic Vitals - possibly secondary to Autonomic Neuropathy due to #2 -Fall Precautions 2. DM2, Uncontrolled -Patient's complications are extensive - severe Peripheral Neuropathy, Diabetic Gastroparesis, Diabetic Retinopathy -Reportedly takes Toujeo 90u SC Daily w/ 30u Humilun BID w/ meals - will use Lantus 40u SC BID w/ Aggressive SSI during hospitalization -HgA1c > 14 in clinic ~1M prior - will not repeat -ACHS Accuchecks -Hypoglycemia Protocol -Will restart patient's home Gabapentin regimen 3. Right Diabetic Foot Ulcer -Wound Care: Consulted, recs appreciated 4. Chest Pain -Patient states that episodes typically last ~20 minutes, and are sharp and non- radiating - possibly related to stress -Heart Score: 3 -Trops: Negative x3 -EKG: Non-Specific Changes -Will continue to monitor closely during hospitalization 5. Tobacco Abuse -Will counseling director on the importance of Tobacco Abuse cessation prior to DC Code: Full PCP: Jasen KARIMI) Diet: CC Activity: Ambulate w/ Assist VTE PPx: SCDs GI PPx: None IVF: None Dispo: Patient is currently stable and admitted to the Telemetry Floor for observation and evaluation of Syncope. Will monitor orthostatics and await results of CT Brain and Echo as per above. Strongly suspect that Uncontrolled DM2 is likely contributing factor - possible Autonomic Neuropathy. Expected LOS < 48H.
[2020-03-30] MEDS ORDERED: Insulin Glargine 45 UNITS in Pre-Filled Syringe 1 EACH SC SCH (09:00)
[2020-03-30] MEDS ORDERED: Insulin Glargine 90 UNITS in Pre-Filled Syringe 1 EACH SC SCH (09:00)
[2020-03-30] MEDS: Gabapentin 300 MG CAP PO SCH (09:25)
--- NOTE | 2020-03-30 11:24 | PRG ---
DATE OF SERVICE: 03/30/2020 Ms. Mederos is a 35-year-old type 2 diabetic, who was admitted with a 5-month history of dizziness that seems to occur when she stands up or stands for too long in the shower. Her symptoms really sound more like orthostatic hypotension likely secondary to a diabetic autonomic neuropathy. In the event, she has been admitted for observation, although she states that her dizziness became so bad yesterday, she may have had a syncopal episode and hit her head. In the event, her brain CT showed no acute intracranial abnormalities. This morning, she is having an echo at the bedside and is awake, alert, and in no distress. We can likely discharge later today. Job ID: [id number]
[2020-03-30 12:31] VITALS: BP 150/85; TEMP 98.6
[2020-03-30 12:57] LABS: SARS-CoV-2 MS2 Positive; SARS-CoV-2 N Gene Negative; SARS-CoV-2 S Gene Negative; SARS-CoV-2 by NAA Not Detected (NotDetected); SARS-CoV-2 orf1ab Negative
[2020-03-30] MEDS ORDERED: FLU VACC QS2020-21(6MOS UP)/PF 60 MCG/0.5 ML SYRINGE IM ONE (21:00)
--- NOTE | 2020-03-31 01:57 | DIS ---
DATE OF ADMISSION: 03/29/2020 DATE OF DISCHARGE: 03/30/2020 RESIDENT: Wilfrid Aggarwal MD ADMITTING ATTENDING: Agueda Nuñez MD DISCHARGE ATTENDING: Sim Smith MD CONSULTS: None. PROCEDURES: 1. Chest x-ray performed on 03/29/2020, which demonstrated no acute cardiopulmonary process. 2. Hand x-ray performed on 03/29/2020, which demonstrated no fracture or dislocation. 3. Wrist x-ray performed on 03/29/2020, which demonstrated no acute fracture or dislocation. 4. Echocardiogram performed on 03/30/2020, which demonstrated a normally sized left ventricle and an ejection fraction of 55% to 60%. 5. Brain CT scan performed on 03/29/2020, which demonstrated no acute intracranial abnormalities. PRIMARY DIAGNOSIS: Diabetic autonomic neuropathy, likely secondary to uncontrolled insulin-dependent type 2 diabetes. SECONDARY DIAGNOSES: 1. Right diabetic foot ulcer. 2. Atypical chest pain. 3. Tobacco use. DISCHARGE MEDICATIONS: 1. Toujeo 90 units subcu daily. 2. Gabapentin 600 mg p.o. q.8 hours. 3. Humulin 30 units subcu a.c. or b.i.d. depending on patient's meal schedule. DISCONTINUED MEDICATIONS: None. HISTORY OF PRESENT ILLNESS/HOSPITAL COURSE: The patient is a 35-year-old female with a past medical history most notable for uncontrolled insulin-dependent type 2 diabetes, who presented to the emergency department for evaluation of a syncopal episode. The patient states that she has had dizziness and presyncope almost daily for approximately 5 months. The patient states that it occurs most notably when she stands up or standing too long, particularly when she is hot or in the shower. The patient states this lasts several seconds with associated symptoms of generalized weakness, feelings of anxiety. The patient denied nausea and vomiting on admission, but did endorse dizziness that was worse and a period of true syncope. Patient thinks that she hit her head. Patient does not have a history of cardiac dysfunction and states that she has been drinking lots of water and also notes that she has increasingly worse peripheral neuropathy secondary to her diabetes as well as diabetic gastroparesis. The patient states that her sugars are poorly controlled at home and she only checks them once a week because she cannot afford test strips. The patient states that her lowest sugar was 160 and her highest blood sugar was 288. The patient was unsure of her last hemoglobin A1c which she thinks may have been checked in June. Per her chart review, it was actually checked approximately one month prior in clinic. The patient was diagnosed with diabetes that was initially gestational diabetes in 2001. She also notes that she has a wound on her right foot that has not been evaluated yet by Wound Care. She sees a router setter for this. The patient also endorsed approximately 20 minutes of chest pain that was centrally located without radiation and was described as sharp. No clear instigating factor could be identified. The patient is unsure if it may have been related to her anxiety. In the emergency department, the patient was given a 1 g dose of Tylenol as well as a 1 L normal saline bolus. At that time, blood glucose was found to be elevated greater than 500; however, urinalysis did not indicate beta hydroxybutyrate and blood gases did not indicate acidosis and unlikely that diabetic ketoacidosis was present at the time of admission. The patient was subsequently scanned with x-ray, the results of which are mentioned elsewhere in this document. She was subsequently stable and was transferred to the floor for further risk stratification and evaluation. The patient's troponins were measured to be negative x3, and her EKG showed no evidence of ST elevation. Echocardiogram was performed, the results of which are mentioned elsewhere in this document and a CT brain was performed, the results of which are mentioned elsewhere in this document. The patient's physical exam was most notable only for orthostatic hypotension, most likely determined that this is diabetic autonomic neuropathy. The patient was subsequently informed of this and noted that the best treatment for this would be better control of her type 2 diabetes. She was encouraged to follow up in clinic as acute processes such as stroke, IL, aortic dissection and heart failure had been ruled out. The patient was subsequently prepped for discharge. Prior to discharge, vital signs were recorded as temperature 98.6, pulse 97 beats per minute, blood pressure while supine 150/85, blood pressure sitting was 123/65, respirations 18 per minute, oxygen saturation 95% on room air. LABORATORY ANALYSIS: Revealed a white blood cell count of 6.5, hemoglobin of 9.3, hematocrit 28.1, platelet count of 197. Blood gas indicated the pH of 7.425, pCO2 of 40.3, and a PO2 of 69.7. Chem panel revealed a sodium of 134, potassium 4.1, chloride 104, carbon dioxide 23, BUN 13, creatinine 0.89. Glucose 341, down from greater than 500 on admission. Total bilirubin 0.3, AST 17, ALT 20, alkaline phosphatase 122. Troponin negative x3. Lipase 34. Urinalysis was positive for glucose greater than 1000. Toxicology was negative for beta-hydroxybutyrate. Serology indicated that the patient was COVID negative. DISPOSITION: Stable. DISCHARGE INSTRUCTIONS: 1. Location: Home. 2. Diet: Carbohydrate consistent. 3. Activity: No restrictions, although the patient was encouraged to rise and sit/lie down from alternating positions at a slowed rate in order to ensure that she does not syncopize. The patient was encouraged to maintain adequate fluid hydration and follow up with her primary care provider in approximately 1 to 2 weeks. 4. Followup: The patient was encouraged to follow up with the primary care provider at [facility] in approximately 1 to 2 weeks in order to discuss her most recent hospitalization as well as ongoing management of her poorly controlled insulin-dependent type 2 diabetes. Job ID: [id number] [facility]NELL MEDICAL CENTERHilda
--- NOTE | 2020-03-31 14:08 | EKG ---
Test Reason : Blood Pressure : / mmHG Vent. Rate : 094 BPM Atrial Rate : 094 BPM P-R Int : 168 ms QRS Dur : 080 ms QT Int : 370 ms P-R-T Axes : 016 -18 -06 degrees QTc Int : 462 ms Normal sinus rhythm Possible Anterior infarct , age undetermined Abnormal ECG Confirmed by LUIS CARLOS GILL ([id number]), editorial director BIJAN VELASCO ([id number]) on 03/31/2020 2:08:36 PM Referred By: Confirmed By:LUIS CARLOS Stevens
== END 2020-03-30 13:35 | disposition home or self-care (01) ==
LOC: ERS 15:58 → 2SW 17:26
PROVIDERS: ADMIT Family Medicine; ATTEND Family Medicine
DX: E11.43 Type 2 diabetes mellitus with diabetic autonomic (poly)neuropathy (principal); K31.84 Gastroparesis; E11.621 Type 2 diabetes mellitus with foot ulcer; L97.419 Non-pressure chronic ulcer of right heel and midfoot with unspecified severity; R07.89 Other chest pain; F17.210 Nicotine dependence, cigarettes, uncomplicated; E11.65 Type 2 diabetes mellitus with hyperglycemia; E11.42 Type 2 diabetes mellitus with diabetic polyneuropathy; E78.5 Hyperlipidemia, unspecified; F41.9 Anxiety disorder, unspecified; F32.9 Major depressive disorder, single episode, unspecified; I95.1 Orthostatic hypotension; E66.9 Obesity, unspecified; Z68.30 Body mass index [BMI] 30.0-30.9, adult; Z79.4 Long term (current) use of insulin; Z79.899 Other long term (current) drug therapy; Z88.5 Allergy status to narcotic agent; Z20.828 Contact with and (suspected) exposure to other viral communicable diseases
CPT/HCPCS: 36415; 36416; 70450; 71045; 80053; 81003; 82010; 82330; 82803; 83690; 84484; 85025; 87635; 93005; 93306; G0378; J1815; U0003

== ENCOUNTER 2020-04-28 20:34 | Emergency (ER) | payer MEDICAID ==
[2020-04-28] MEDS ORDERED: Acetaminophen 325 MG TAB ONE (20:50)
[2020-04-28 21:30] LABS: #Eosinphils 0.1 thou/uL (0.0-0.7); #Lymphocytes 2.1 thou/uL (1.20-3.40); #Monocytes 1.2 thou/uL (0.11-0.59); #Neutrophils 9.4 thou/uL (1.40-6.50); %Eosinophils 0.6 % (0.0-10.0); %Lymphocytes 16.7 % (21.0-51.0); %Monocytes 9.1 % (0.0-10.0); %Neutrophils 73.6 % (42.0-75.0); Hemoglobin 10.3 g/dL (12.0-16.0); Mean Corpuscular HGB CONC 32.3 g/dL (32.0-36.0); Mean Corpuscular Volume 80.5 fL (78.0-98.0); Platelet Count 229 thou/uL (130-400); RBC Distribution Width 13.9 % (11.5-14.5); Red Blood Cell (RBC) Count 3.96 mill/uL (4.20-5.40); White Blood Cell (WBC) Count 12.7 thou/uL (4.8-10.8)
[2020-04-28 21:49] LABS: ALT (SGPT) 13 U/L (8-55); AST (SGOT) 13 U/L (5-34); Albumin 3.1 g/dL (3.5-5.0); Alkaline Phosphatase 145 U/L (40-110); Anion Gap 12 mmol/L (10-20); BUN (Urea Nitrogen) 9 mg/dL (7.0-18.7); Bilirubin, Total 0.4 mg/dL (0.2-1.2); Calc. Creatinine Clearance 0 mL/min (70-130); Calcium 8.4 mg/dL (7.8-10.44); Carbon Dioxide 26 mmol/L (22-29); Chloride 99 mmol/L (98-107); Estimated GFR-MDRD 52; Globulin 4.2 g/dL (2.4-3.5); Glucose 385 mg/dL (70-105); Potassium 3.8 mmol/L (3.5-5.1); Protein, Total 7.3 g/dL (6.0-8.3); Sodium 133 mmol/L (136-145)
[2020-04-28] MEDS ORDERED: Lidocaine 1% w/Epinephrine 1:100K 20 ML VIAL ONE (22:02)
[2020-04-28] MEDS ORDERED: Sulfameth/Trimethoprim DS 800-160mg TAB ONE (22:48)
== END 2020-04-28 22:58 | disposition home or self-care (01) ==
LOC: ERS 20:34
DX: L02.415 Cutaneous abscess of right lower limb (principal); E11.40 Type 2 diabetes mellitus with diabetic neuropathy, unspecified; F41.9 Anxiety disorder, unspecified; K76.0 Fatty (change of) liver, not elsewhere classified; F32.9 Major depressive disorder, single episode, unspecified; Z79.4 Long term (current) use of insulin; Z87.891 Personal history of nicotine dependence; Z79.899 Other long term (current) drug therapy
CPT/HCPCS: 10060; 36415; 80053; 83605; 85025; 87040

== ENCOUNTER 2020-07-04 08:14 | Emergency (ER) | payer MEDICAID | END 2020-07-04 09:45 | disposition home or self-care (01) | LOC: ERS 08:14 | DX: L02.31 Cutaneous abscess of buttock (principal); E11.9 Type 2 diabetes mellitus without complications; Z87.891 Personal history of nicotine dependence; Z79.899 Other long term (current) drug therapy; Z79.4 Long term (current) use of insulin | CPT/HCPCS: 10060 ==

== ENCOUNTER 2020-07-05 07:37 | Emergency (ER) | payer MEDICAID | END 2020-07-05 09:03 | disposition home or self-care (01) | LOC: ERS 07:37 | DX: Z48.817 Encounter for surgical aftercare following surgery on the skin and subcutaneous tissue (principal); E11.9 Type 2 diabetes mellitus without complications; Z87.891 Personal history of nicotine dependence; Z79.899 Other long term (current) drug therapy; Z79.4 Long term (current) use of insulin | CPT/HCPCS: 99282 ==

== ENCOUNTER 2020-07-06 08:35 | Inpatient (IN) | payer MEDICAID ==
[2020-07-06 09:39] LABS: Mean Corpuscular HGB CONC 32.3 g/dL (32.0-36.0); Mean Corpuscular Hemoglobin 25.7 pg (27.0-31.0); Mean Corpuscular Volume 79.5 fL (78.0-98.0); Mean Platelet Volume 8.4 fL (7.4-10.4); Platelet Count 260 thou/uL (130-400); Red Blood Cell (RBC) Count 3.87 mill/uL (4.20-5.40); White Blood Cell (WBC) Count 16.8 thou/uL (4.8-10.8)
[2020-07-06 09:44] LABS: PTT 26.4 sec (22.9-36.1); Prothrombin Time 12.9 sec (12.0-14.7)
[2020-07-06] MEDS ORDERED: Ondansetron PF 4 MG/2 ML Vial ONE (09:57)
[2020-07-06] MEDS ORDERED: Cefepime 2 GM VIAL ONE (09:57)
[2020-07-06] MEDS ORDERED: Fentanyl 100 MCG/2 ML VIAL ONE ×2 (09:57→11:35)
[2020-07-06 09:59] LABS: Band 9 % (5-11); Lymphocytes 15 % (21-51); MDiff Complete? YES; Monocytes 3 % (0-10); Neutrophil 72 % (42-75); Polychromasia SLIGHT = 2-3 cells (100X) (0-2/hpf); Reactive Lymphocytes 1 % (0-10)
[2020-07-06 10:00] LABS: Bacteria/HPF 4+ HPF (None Seen); Bilirubin Negative (Negative); Blood, Urine Trace (Negative); Clarity Turbid (Clear); Glucose, Urine (Dipstick) Greater than 1000 mg/dL (Negative); Ketone, Urine Negative (Negative); Leukocyte 500 Leu/uL (Negative); Nitrite Negative (Negative); Protein, Urine (Dipstick) 100 mg/dL (Neg-Trace); Specific Gravity, Urine 1.026 (1.002-1.036); Urobilinogen Normal mg/dL (Less than 2); WBC/HPF Greater than 50 HPF (0-3); pH, Urine 5.5 (5.0-9.0)
[2020-07-06 10:00] LABS: ALT (SGPT) 9 U/L (8-55); AST (SGOT) 12 U/L (5-34); Albumin 3.3 g/dL (3.5-5.0); Alkaline Phosphatase 138 U/L (40-110); Anion Gap 12 mmol/L (10-20); BUN (Urea Nitrogen) 15 mg/dL (7.0-18.7); Bilirubin, Total 0.4 mg/dL (0.2-1.2); Calc. Creatinine Clearance 0 mL/min (70-130); Calcium 8.2 mg/dL (7.8-10.44); Carbon Dioxide 26 mmol/L (22-29); Chloride 99 mmol/L (98-107); Globulin 4.4 g/dL (2.4-3.5); Glucose 180 mg/dL (70-105); Potassium 3.7 mmol/L (3.5-5.1); Protein, Total 7.7 g/dL (6.0-8.3); Sodium 133 mmol/L (136-145)
[2020-07-06] MEDS ORDERED: HumaLOG 300 UNITS/3 ML VIAL SC PRN ×2 (11:33)
[2020-07-06] MEDS ORDERED: Dextrose 50% Abboject 50 ML SYRINGE SLOW IVP PRN (11:33)
[2020-07-06] MEDS ORDERED: Dextrose 5% in Water 1,000 ML IV PRN (11:33)
[2020-07-06 12:13] LABS: BHCG - Serum Negative (NEGATIVE); Pregs Control Background? CLEAR/WHITE (CLR/WHITE); Pregs Control Bar Appear? YES (CONTROL BAR)
[2020-07-06 13:47] VITALS: BMI 33.6
[2020-07-06] MEDS ORDERED: Morphine 2 MG/ML VIAL SLOW IVP PRN (14:51)
[2020-07-06] MEDS ORDERED: HYDROcodone/Acetaminophen 5/325 mg Tablet PO PRN (14:51)
[2020-07-06] MEDS ORDERED: Iopamidol-370 76% 500 ML 1 ML ONE (14:57)
[2020-07-06] MEDS: Gabapentin 300 MG CAP PO SCH ×2 (16:16→21:46)
[2020-07-06] MEDS: Piperacillin/Tazobactam 3.375 GM in Sodium Chloride 0.9% 100 ML IVPB SCH ×2 (16:17→21:47)
[2020-07-06 16:31] LABS: Iron 27 ug/dL (50-170); Iron Binding Capacity, Total 323 mcg/dL (265-497)
[2020-07-06] MEDS ORDERED: Insulin Regular 300 UNITS/3 ML VIAL SC SCH (17:00)
[2020-07-06] MEDS: HumaLOG 300 UNITS/3 ML VIAL SC PRN (17:23)
[2020-07-06 18:23] LABS: SARS-CoV-2 PCR by NAA Not Detected (NotDetected)
[2020-07-06] MEDS: Acetaminophen 325 MG TAB PO PRN (20:29)
[2020-07-06] MEDS: Atorvastatin Calcium 40 MG TAB PO SCH (21:47)
[2020-07-07] MEDS: Piperacillin/Tazobactam 3.375 GM in Sodium Chloride 0.9% 100 ML IVPB SCH ×4 (03:39→18:35)
[2020-07-07] MEDS: HumaLOG 300 UNITS/3 ML VIAL SC PRN (06:28)
[2020-07-07] MEDS: Gabapentin 300 MG CAP PO SCH ×3 (06:29→21:49)
[2020-07-07 06:51] LABS: #Eosinphils 0.2 thou/uL (0.0-0.7); #Monocytes 0.9 thou/uL (0.11-0.59); #Neutrophils 7.4 thou/uL (1.40-6.50); %Basophils 0.3 % (0.0-1.0); %Eosinophils 2.4 % (0.0-10.0); %Monocytes 8.1 % (0.0-10.0); %Neutrophils 70.3 % (42.0-75.0); Hemoglobin 8.1 g/dL (12.0-16.0); Mean Corpuscular HGB CONC 31.6 g/dL (32.0-36.0); Mean Corpuscular Volume 79.2 fL (78.0-98.0); Mean Platelet Volume 8.2 fL (7.4-10.4); Platelet Count 224 thou/uL (130-400); RBC Distribution Width 14.8 % (11.5-14.5); Red Blood Cell (RBC) Count 3.25 mill/uL (4.20-5.40); White Blood Cell (WBC) Count 10.5 thou/uL (4.8-10.8)
[2020-07-07 07:10] LABS: ALT (SGPT) 9 U/L (8-55); AST (SGOT) 19 U/L (5-34); Albumin 2.6 g/dL (3.5-5.0); Alkaline Phosphatase 124 U/L (40-110); Anion Gap 12 mmol/L (10-20); BUN (Urea Nitrogen) 14 mg/dL (7.0-18.7); Bilirubin, Total 0.3 mg/dL (0.2-1.2); Calc. Creatinine Clearance 109 mL/min (70-130); Calcium 7.4 mg/dL (7.8-10.44); Carbon Dioxide 22 mmol/L (22-29); Chloride 104 mmol/L (98-107); Globulin 3.8 g/dL (2.4-3.5); Glucose 283 mg/dL (70-105); Potassium 4.2 mmol/L (3.5-5.1); Protein, Total 6.4 g/dL (6.0-8.3); Sodium 134 mmol/L (136-145)
[2020-07-07] MEDS ORDERED: Insulin Glargine 80 UNITS in Pre-Filled Syringe 1 EACH SC SCH (09:00)
[2020-07-07] MEDS ORDERED: Non-Formulary Item 1 EACH (Insulin Glargine,Hum.Rec.Anlog [Toujeo Solostar] 300 UNIT/ML I SQ SCH (09:00)
[2020-07-07] MEDS: Enoxaparin Sodium 40 MG/0.4 ML SYRINGE SC SCH (09:27)
[2020-07-07] MEDS: Insulin Glargine 20 UNITS in Pre-Filled Syringe 1 EACH SC SCH (09:27)
[2020-07-07] MEDS ORDERED: Polyethylene Glycol 3350 17 GM Packet PO PRN (10:04)
[2020-07-07 10:56] LABS: Hemoglobin A1c 12.9 % (4.0-6.0)
[2020-07-07] MEDS ORDERED: Vancomycin HCl 1.75 GM in Sodium Chloride 0.9% 500 ML IVPB SCH (11:00)
[2020-07-07] MEDS: Ondansetron ODT 4 MG TAB PO PRN ×2 (11:33→16:30)
[2020-07-07] MEDS ORDERED: Promethazine HCl 25 MG/ML VIAL IM PRN (12:43)
[2020-07-07] MEDS: Acetaminophen 325 MG TAB PO PRN (16:30)
[2020-07-07] MEDS: Atorvastatin Calcium 40 MG TAB PO SCH (21:50)
[2020-07-08] MEDS: Piperacillin/Tazobactam 3.375 GM in Sodium Chloride 0.9% 100 ML IVPB SCH ×2 (00:43→06:32)
[2020-07-08 05:19] VITALS: TEMP 98.6
[2020-07-08] MEDS: Gabapentin 300 MG CAP PO SCH ×2 (06:35→14:34)
[2020-07-08] MEDS ORDERED: Iron Polysaccharides Complex 150 MG CAP PO SCH (08:00)
[2020-07-08] MEDS: Insulin Glargine 20 UNITS in Pre-Filled Syringe 1 EACH SC SCH (08:55)
[2020-07-08] MEDS: Enoxaparin Sodium 40 MG/0.4 ML SYRINGE SC SCH (08:55)
[2020-07-08] MEDS ORDERED: Lactinex Tablet PO SCH (09:00)
[2020-07-08] MEDS ORDERED: Ascorbic Acid 500 mg Chewable Tablet PO SCH (09:00)
[2020-07-08 09:05] VITALS: BP 134/63
[2020-07-08] MEDS ORDERED: Bismuth Subs 17.5 mg/mL Susp PO PRN ×2 (13:04→14:17)
[2020-07-08 14:55] LABS: #Eosinphils 0.1 thou/uL (0.0-0.7); #Lymphocytes 2.1 thou/uL (1.20-3.40); #Monocytes 0.6 thou/uL (0.11-0.59); #Neutrophils 5.1 thou/uL (1.40-6.50); %Basophils 0.5 % (0.0-1.0); %Eosinophils 1.7 % (0.0-10.0); %Monocytes 7.7 % (0.0-10.0); %Neutrophils 64.1 % (42.0-75.0); Hemoglobin 8.6 g/dL (12.0-16.0); Mean Corpuscular HGB CONC 32.1 g/dL (32.0-36.0); Mean Corpuscular Hemoglobin 25.2 pg (27.0-31.0); Mean Corpuscular Volume 78.5 fL (78.0-98.0); Mean Platelet Volume 7.5 fL (7.4-10.4); Platelet Count 256 thou/uL (130-400); RBC Distribution Width 14.9 % (11.5-14.5); Red Blood Cell (RBC) Count 3.41 mill/uL (4.20-5.40)
[2020-07-08 15:25] LABS: Vancomycin, Trough 3.9 ug/mL
[2020-07-08 15:26] LABS: Anion Gap 13 mmol/L (10-20); BUN (Urea Nitrogen) 9 mg/dL (7.0-18.7); Calc. Creatinine Clearance 147 mL/min (70-130); Calcium 7.9 mg/dL (7.8-10.44); Carbon Dioxide 22 mmol/L (22-29); Chloride 106 mmol/L (98-107); Glucose 91 mg/dL (70-105); Potassium 4.1 mmol/L (3.5-5.1); Sodium 137 mmol/L (136-145)
[2020-07-08] MEDS ORDERED: Vancomycin HCl 1.25 GM in Sodium Chloride 0.9% 250 ML 250 ML IVPB SCH (17:00)
== END 2020-07-08 16:48 | disposition home or self-care (01) | DRG 872 ==
LOC: ERS 08:35 → 3SE 11:18
PROVIDERS: ADMIT Emergency Medicine; ATTEND Emergency Medicine
DX: A41.9 Sepsis, unspecified organism (principal); L02.31 Cutaneous abscess of buttock; L03.317 Cellulitis of buttock; E87.1 Hypo-osmolality and hyponatremia; N17.9 Acute kidney failure, unspecified; E11.40 Type 2 diabetes mellitus with diabetic neuropathy, unspecified; F41.9 Anxiety disorder, unspecified; E11.65 Type 2 diabetes mellitus with hyperglycemia; K76.0 Fatty (change of) liver, not elsewhere classified; D64.9 Anemia, unspecified; Z20.822 Contact with and (suspected) exposure to COVID-19; F32.9 Major depressive disorder, single episode, unspecified; Z53.29 Procedure and treatment not carried out because of patient's decision for other reasons; Z87.891 Personal history of nicotine dependence; Z88.6 Allergy status to analgesic agent; Z79.899 Other long term (current) drug therapy; Z79.4 Long term (current) use of insulin; Z88.8 Allergy status to other drugs, medicaments and biological substances; Z79.2 Long term (current) use of antibiotics; E11.628 Type 2 diabetes mellitus with other skin complications
CPT/HCPCS: 36415; 36416; 74177; 80048; 80053; 80202; 81003; 81015; 82728; 83036; 83540; 83550; 83605; 84703; 85025; 85610; 85730; 87040; 87070; 87077; 87086; 87186; 87205; 87635; 93005; 96365; 96366; 96367; 96375; 96376; 99282; J0692; J1650; J1815; J2405; J2543; J2550; J3010; J3370; J3490; J7030; Q0162; Q9967; U0003; U0005

== ENCOUNTER 2020-10-09 15:30 | Emergency (ER) | payer MEDICAID | END 2020-10-09 15:47 | LOC: ERS 15:30 | DX: Z53.21 Procedure and treatment not carried out due to patient leaving prior to being seen by health care provider (principal) ==

== ENCOUNTER 2020-10-25 16:55 | Emergency (ER) | payer MEDICAID ==
[2020-10-25] MEDS ORDERED: Naloxone HCl 0.4 mg/ml Vial ONE (17:10)
[2020-10-25 17:55] LABS: #Eosinphils 0.1 thou/uL (0.0-0.7); #Lymphocytes 2.1 thou/uL (1.20-3.40); #Monocytes 0.7 thou/uL (0.11-0.59); #Neutrophils 5.3 thou/uL (1.40-6.50); %Basophils 0.2 % (0.0-1.0); %Eosinophils 1.1 % (0.0-10.0); %Lymphocytes 25.4 % (21.0-51.0); %Monocytes 8.4 % (0.0-10.0); %Neutrophils 64.9 % (42.0-75.0); Hemoglobin 10.3 g/dL (12.0-16.0); Mean Corpuscular HGB CONC 33.6 g/dL (32.0-36.0); Mean Corpuscular Hemoglobin 28.1 pg (27.0-31.0); Mean Corpuscular Volume 83.6 fL (78.0-98.0); Mean Platelet Volume 7.9 fL (7.4-10.4); Platelet Count 232 thou/uL (130-400); RBC Distribution Width 13.7 % (11.5-14.5); Red Blood Cell (RBC) Count 3.68 mill/uL (4.20-5.40); White Blood Cell (WBC) Count 8.2 thou/uL (4.8-10.8)
[2020-10-25 18:02] LABS: BHCG - Serum Negative (NEGATIVE); Pregs Control Background? CLEAR/WHITE (CLR/WHITE); Pregs Control Bar Appear? YES (CONTROL BAR)
[2020-10-25 18:12] LABS: Bacteria/HPF 1+ HPF (None Seen); Bilirubin Negative (Negative); Blood, Urine Negative (Negative); Clarity Clear (Clear); Glucose, Urine (Dipstick) Greater than 1000 mg/dL (Negative); Ketone, Urine Negative (Negative); Leukocyte Negative Leu/uL (Negative); Nitrite Negative (Negative); Protein, Urine (Dipstick) 70 mg/dL (Neg-Trace); RBC/HPF None Seen HPF (0-3); Specific Gravity, Urine 1.034 (1.002-1.036); Squamous Epithelial 0-3 HPF (0-3); Urobilinogen Normal mg/dL (Less than 2); WBC/HPF 0-3 HPF (0-3)
[2020-10-25 18:19] LABS: Amphetamine Not Detected (NotDetected); Barbiturates Screen Not Detected (NotDetected); Benzodiazepine Screen Not Detected (NotDetected); Cocaine Metabolite Screen Not Detected (NotDetected); Medtox Control Line Valid? VALID (VALID); Medtox Reader # READER 4; Methadone Not Detected (NotDetected); Methamphetamine Not Detected (NotDetected); Opiate Screen Not Detected (NotDetected); Oxycodone Screen Not Detected (NotDetected); Phencyclidine (PCP) Not Detected (NotDetected); THC/Cannabinoid Screen Not Detected (NotDetected); Tricyclic Screen Not Detected (NotDetected)
[2020-10-25 18:28] LABS: ALT (SGPT) 29 U/L (8-55); AST (SGOT) 25 U/L (5-34); Acetaminophen Less than 6.0 mcg/mL (10.0-30.0); Albumin 3.1 g/dL (3.5-5.0); Alcohol Less than 10 mg/dL (Less than 10); Alkaline Phosphatase 150 U/L (40-110); Anion Gap 12 mmol/L (10-20); BUN (Urea Nitrogen) 9 mg/dL (7.0-18.7); Bilirubin, Total 0.3 mg/dL (0.2-1.2); Calc. Creatinine Clearance 0 mL/min (70-130); Carbon Dioxide 23 mmol/L (22-29); Chloride 100 mmol/L (98-107); Globulin 4.1 g/dL (2.4-3.5); Glucose 327 mg/dL (70-105); Magnesium 1.8 mg/dL (1.6-2.6); Phosphorus 2.5 mg/dL (2.3-4.7); Potassium 3.3 mmol/L (3.5-5.1); Protein, Total 7.2 g/dL (6.0-8.3); Salicylate Less than 8.0 mg/dL (15.0-30.0); Sodium 132 mmol/L (136-145)
== END 2020-10-25 19:50 | disposition home or self-care (01) ==
LOC: ERS 16:55
DX: R55 Syncope and collapse (principal); E11.40 Type 2 diabetes mellitus with diabetic neuropathy, unspecified; Z79.899 Other long term (current) drug therapy
CPT/HCPCS: 36415; 36416; 51701; 70450; 71045; 80053; 80306; 80307; 81003; 81015; 82010; 83605; 83735; 84100; 84484; 84703; 85025; 93005; 94760; 96374; J2310

== ENCOUNTER 2023-03-19 08:58 | Inpatient (IN) | payer OTHER ==
[2023-03-19] MEDS ORDERED: Ondansetron PF 4 MG/2 ML Vial ONE (10:00)
[2023-03-19] MEDS ORDERED: Ketorolac Tromethamine 30 MG/ML VIAL ONE (10:00)
[2023-03-19] MEDS ORDERED: Morphine 4 MG/ML VIAL ONE ×2 (10:00→11:57)
[2023-03-19] MEDS ORDERED: Lidocaine 1% PF 5 ML VIAL ONE (10:00)
[2023-03-19 10:05] LABS: Actual Bicarbonate (HCO3v) 22.2 mEq/L (22-28); Base Excess -2.4 mEq/L (-2.0 to +3.0); Calcium, Ionized (venous) 1.09 mmol/L (1.16-1.32); Chloride (VBG) 104 mmol/L (98-106); Hematocrit-VBG 30 % (36.0-47.0); Hemoglobin (Hb) 10.1 g/dL (11.7-15.5); Potassium (VBG) 3.52 mmol/L (3.70-5.30); Sodium 136 mmol/L (133-146); pH (venous) 7.392 (7.32-7.43)
[2023-03-19 10:14] LABS: #Eosinphils 0.1 thou/uL (0.0-0.7); #Neutrophils 10.8 thou/uL (1.40-6.50); %Basophils 0.1 % (0.0-1.0); %Eosinophils 0.6 % (0.0-10.0); %Lymphocytes 14.8 % (21.0-51.0); %Monocytes 7.1 % (0.0-10.0); %Neutrophils 76.9 % (42.0-75.0); Hematocrit 26.7 % (36.0-47.0); Hemoglobin 8.9 g/dL (12.0-16.0); Mean Corpuscular HGB CONC 33.3 g/dL (32.0-36.0); Mean Platelet Volume 10.1 fL (7.4-10.4); Platelet Count 341 10x3/uL (130-400); RBC Distribution Width 13.9 % (11.5-14.5); Red Blood Cell (RBC) Count 3.18 mill/uL (4.20-5.40)
[2023-03-19 10:38] LABS: ALT (SGPT) 8 U/L (8-55); AST (SGOT) 11 U/L (5-34); Alkaline Phosphatase 132 U/L (40-110); Anion Gap 12 mmol/L (10-20); BUN (Urea Nitrogen) 13 mg/dL (7.0-18.7); Bilirubin, Total 0.5 mg/dL (0.2-1.2); Calc. Creatinine Clearance 0 mL/min (70-130); Calcium 8.6 mg/dL (7.8-10.44); Carbon Dioxide 22 mmol/L (22-29); Chloride 102 mmol/L (98-107); Estimated GFR 38; Globulin 4.3 g/dL (2.4-3.5); Glucose 176 mg/dL (70-105); Potassium 3.4 mmol/L (3.5-5.1); Protein, Total 7.3 g/dL (6.0-8.3); Sodium 133 mmol/L (136-145)
[2023-03-19 11:03] LABS: BHCG - Serum Negative (NEGATIVE); Pregs Control Background? CLEAR/WHITE (CLR/WHITE); Pregs Control Bar Appear? YES (CONTROL BAR)
[2023-03-19] MEDS ORDERED: Cefepime 2 GM VIAL ONE (11:57)
[2023-03-19] MEDS ORDERED: Vancomycin 1.5 GRAM/300 ML BAG 1.5 GM in Premix Bag 1 BAG IVPB SCH (12:00)
[2023-03-19] MEDS ORDERED: Dextrose 50% Abboject 50 ML SYRINGE SLOW IVP PRN (12:51)
[2023-03-19] MEDS ORDERED: Ondansetron PF 4 MG/2 ML Vial IVP PRN (12:51)
[2023-03-19] MEDS ORDERED: Acetaminophen 325 MG TAB PO PRN (12:51)
[2023-03-19] MEDS ORDERED: HYDROcodone/Acetaminophen 5/325 mg Tablet PO PRN ×2 (12:51)
[2023-03-19] MEDS ORDERED: Dextrose 5% in Water 1,000 ML IV PRN (12:51)
[2023-03-19] MEDS ORDERED: Senokot S 8.6-50 MG TAB PO PRN (12:51)
[2023-03-19] MEDS ORDERED: Ondansetron ODT 4 MG TAB PO PRN (12:51)
[2023-03-19] MEDS ORDERED: Glucagon 1 MG/ML KIT IM PRN (12:51)
[2023-03-19 16:00] VITALS: BMI 29.3
[2023-03-19] MEDS: Gabapentin 300 MG CAP PO SCH ×2 (17:07→20:09)
[2023-03-19] MEDS: HumaLOG 300 UNITS/3 ML VIAL SC PRN ×2 (18:34→20:34)
[2023-03-19] MEDS ORDERED: Vancomycin 1 GM in Premix Bag 1 BAG IVPB SCH (21:00)
[2023-03-19] MEDS: Cefepime 1 GM in Sodium Chloride 0.9% 100 ML IVPB SCH (23:40)
[2023-03-20] MEDS ORDERED: Vancomycin HCl 750 MG in Sodium Chloride 0.9% 250 ML 250 ML IVPB SCH ×2 (01:00→11:30)
[2023-03-20] MEDS: HumaLOG 300 UNITS/3 ML VIAL SC PRN ×3 (04:13→20:40)
[2023-03-20 05:53] LABS: #Eosinphils 0.2 thou/uL (0.0-0.7); #Monocytes 0.8 thou/uL (0.11-0.59); #Neutrophils 5.9 thou/uL (1.40-6.50); %Basophils 0.1 % (0.0-1.0); %Eosinophils 1.8 % (0.0-10.0); %Lymphocytes 18.3 % (21.0-51.0); %Monocytes 9.4 % (0.0-10.0); %Neutrophils 69.7 % (42.0-75.0); Hematocrit 23.6 % (36.0-47.0); Hemoglobin 7.7 g/dL (12.0-16.0); Mean Corpuscular HGB CONC 32.6 g/dL (32.0-36.0); Mean Corpuscular Hemoglobin 27.5 pg (27.0-31.0); Mean Corpuscular Volume 84.3 fl (78.0-98.0); Mean Platelet Volume 9.8 fL (7.4-10.4); Platelet Count 267 10x3/uL (130-400); White Blood Cell (WBC) Count 8.5 10x3/uL (4.8-10.8)
[2023-03-20 06:16] LABS: ALT (SGPT) Less than 7 U/L (8-55); AST (SGOT) 7 U/L (5-34); Albumin 2.5 g/dL (3.5-5.0); Alkaline Phosphatase 109 U/L (40-110); Anion Gap 9 mmol/L (10-20); BUN (Urea Nitrogen) 18 mg/dL (7.0-18.7); Bilirubin, Total 0.3 mg/dL (0.2-1.2); Calc. Creatinine Clearance 48 mL/min (70-130); Carbon Dioxide 23 mmol/L (22-29); Chloride 106 mmol/L (98-107); Estimated GFR 35; Globulin 3.5 g/dL (2.4-3.5); Glucose 223 mg/dL (70-105); Potassium 3.8 mmol/L (3.5-5.1); Sodium 134 mmol/L (136-145)
[2023-03-20] MEDS ORDERED: Iopamidol-370 76% 500 ML MDV (1 ML CHARGE) ONE (10:01)
[2023-03-20] MEDS: Cefepime 1 GM in Sodium Chloride 0.9% 100 ML IVPB SCH (11:16)
[2023-03-20] MEDS: Gabapentin 300 MG CAP PO SCH ×3 (11:17→20:39)
[2023-03-20] MEDS: Empagliflozin 25 MG TAB PO SCH (11:17)
[2023-03-20 12:32] LABS: Vancomycin, Random 22.5 ug/mL (See Comment)
[2023-03-20] MEDS ORDERED: VANCOMYCIN 1.25 GM/250 ML BAG 1.25 GM in Premix Bag 1 BAG IVPB SCH (16:00)
[2023-03-20] MEDS: VANCOMYCIN 1.25 GM/250 ML BAG 1.25 GM in Premix Bag 1 BAG IVPB SCH (16:43)
[2023-03-20] MEDS: Insulin Glargine 30 UNITS/0.3 ML VIAL SC SCH (20:39)
[2023-03-20] MEDS ORDERED: Gabapentin 300 MG CAP PO SCH (21:00)
[2023-03-21] MEDS: Cefepime 1 GM in Sodium Chloride 0.9% 100 ML IVPB SCH ×3 (00:05→23:45)
[2023-03-21] MEDS ORDERED: Morphine 4 MG/ML VIAL SLOW IVP SCH (03:15)
[2023-03-21 05:28] LABS: #Eosinphils 0.1 thou/uL (0.0-0.7); #Monocytes 0.7 thou/uL (0.11-0.59); #Neutrophils 3.8 thou/uL (1.40-6.50); %Basophils 0.2 % (0.0-1.0); %Eosinophils 2.2 % (0.0-10.0); %Lymphocytes 24.7 % (21.0-51.0); %Monocytes 11.3 % (0.0-10.0); %Neutrophils 61.1 % (42.0-75.0); Hematocrit 23.4 % (36.0-47.0); Hemoglobin 7.5 g/dL (12.0-16.0); Mean Corpuscular HGB CONC 32.1 g/dL (32.0-36.0); Mean Corpuscular Hemoglobin 27.1 pg (27.0-31.0); Mean Corpuscular Volume 84.5 fl (78.0-98.0); Platelet Count 297 10x3/uL (130-400); RBC Distribution Width 13.9 % (11.5-14.5); Red Blood Cell (RBC) Count 2.77 mill/uL (4.20-5.40); White Blood Cell (WBC) Count 6.3 10x3/uL (4.8-10.8)
[2023-03-21 05:57] LABS: Anion Gap 10 mmol/L (10-20); BUN (Urea Nitrogen) 13 mg/dL (7.0-18.7); Calc. Creatinine Clearance 60 mL/min (70-130); Calcium 8.4 mg/dL (7.8-10.44); Carbon Dioxide 23 mmol/L (22-29); Chloride 110 mmol/L (98-107); Estimated GFR 46; Glucose 138 mg/dL (70-105); Sodium 139 mmol/L (136-145)
[2023-03-21 06:23] LABS: Hemoglobin A1c 10.2 % (4.0-6.0)
[2023-03-21] MEDS: Empagliflozin 25 MG TAB PO SCH (09:20)
[2023-03-21] MEDS: Gabapentin 300 MG CAP PO SCH ×3 (09:20→20:41)
[2023-03-21] MEDS: HumaLOG 300 UNITS/3 ML VIAL SC PRN ×2 (17:46→20:40)
[2023-03-21] MEDS: VANCOMYCIN 1.25 GM/250 ML BAG 1.25 GM in Premix Bag 1 BAG IVPB SCH (18:05)
[2023-03-21] MEDS: Insulin Glargine 30 UNITS/0.3 ML VIAL SC SCH (20:39)
[2023-03-22] MEDS: HumaLOG 300 UNITS/3 ML VIAL SC PRN ×2 (05:51→13:14)
[2023-03-22 06:15] LABS: #Eosinphils 0.1 thou/uL (0.0-0.7); #Monocytes 0.5 thou/uL (0.11-0.59); #Neutrophils 3.3 thou/uL (1.40-6.50); %Basophils 0.2 % (0.0-1.0); %Eosinophils 1.6 % (0.0-10.0); %Lymphocytes 32.1 % (21.0-51.0); %Monocytes 8.6 % (0.0-10.0); %Neutrophils 57.2 % (42.0-75.0); Mean Corpuscular Hemoglobin 26.8 pg (27.0-31.0); Mean Corpuscular Volume 83.9 fl (78.0-98.0); Mean Platelet Volume 9.7 fL (7.4-10.4); Platelet Count 342 10x3/uL (130-400); RBC Distribution Width 13.9 % (11.5-14.5); Red Blood Cell (RBC) Count 2.98 mill/uL (4.20-5.40); White Blood Cell (WBC) Count 5.7 10x3/uL (4.8-10.8)
[2023-03-22 06:39] LABS: Anion Gap 14 mmol/L (10-20); BUN (Urea Nitrogen) 12 mg/dL (7.0-18.7); Calc. Creatinine Clearance 72 mL/min (70-130); Calcium 8.6 mg/dL (7.8-10.44); Carbon Dioxide 22 mmol/L (22-29); Chloride 106 mmol/L (98-107); Estimated GFR 56; Glucose 267 mg/dL (70-105); Sodium 138 mmol/L (136-145)
[2023-03-22] MEDS: Empagliflozin 25 MG TAB PO SCH (08:58)
[2023-03-22] MEDS: Gabapentin 300 MG CAP PO SCH ×2 (08:58→16:29)
[2023-03-22] MEDS: Cefepime 1 GM in Sodium Chloride 0.9% 100 ML IVPB SCH (13:12)
[2023-03-22 15:33] VITALS: BP 126/84; TEMP 98
[2023-03-22] MEDS: VANCOMYCIN 1.25 GM/250 ML BAG 1.25 GM in Premix Bag 1 BAG IVPB SCH (16:29)
== END 2023-03-22 17:10 | disposition home or self-care (01) | DRG 872 ==
LOC: ERS 08:58 → SUATTDRO 08:58 → T4-B 12:53 → OBSVTOIN 03-20 09:39
PROVIDERS: ADMIT Family Medicine; ATTEND Internal Medicine
PROC: 3E03329 Introduction of Other Anti-infective into Peripheral Vein, Percutaneous Approach (ICD-10-PCS; principal; 2023-03-20)
PROC: 0J9M0ZZ Drainage of Left Upper Leg Subcutaneous Tissue and Fascia, Open Approach (ICD-10-PCS; 2023-03-20)
DX: A41.9 Sepsis, unspecified organism (principal); L03.116 Cellulitis of left lower limb; N17.9 Acute kidney failure, unspecified; E11.40 Type 2 diabetes mellitus with diabetic neuropathy, unspecified; F17.210 Nicotine dependence, cigarettes, uncomplicated; N18.30 Chronic kidney disease, stage 3 unspecified; E11.22 Type 2 diabetes mellitus with diabetic chronic kidney disease; N73.9 Female pelvic inflammatory disease, unspecified; D63.1 Anemia in chronic kidney disease; Z83.3 Family history of diabetes mellitus; Z98.890 Other specified postprocedural states; Z88.6 Allergy status to analgesic agent; Z79.899 Other long term (current) drug therapy; Z79.4 Long term (current) use of insulin; Z89.512 Acquired absence of left leg below knee
CPT/HCPCS: 10060; 36415; 36416; 72193; 80048; 80053; 80202; 82010; 82805; 83036; 83605; 84703; 85025; 87040; 87070; 87076; 87081; 87205; 96361; 96365; 96366; 96367; 96375; 96376; 97139; G0378; J0692; J1815; J1885; J2270; J2405; J3370; J3490; J7050; Q0162; Q9967

== ENCOUNTER 2025-01-20 20:46 | Inpatient (IN) | payer MEDICAID ==
[2025-01-20 21:38] LABS: #Basophils Less than 0.03 10x3/uL (0.0-0.2); #Eosinophils 0.04 10x3/uL (0.0-0.7); #Monocytes 0.84 10x3/uL (0.11-0.59); #Neutrophils 10.50 10x3/uL (1.40-6.50); %Basophils 0.1 % (0.0-1.0); %Eosinophils 0.3 % (0.0-10.0); %Lymphocytes 3.4 % (21.0-51.0); %Monocytes 7.1 % (0.0-10.0); %Neutrophils 88.4 % (42.0-75.0); Hematocrit 34.4 % (36.0-47.0); Hemoglobin 10.9 g/dL (12.0-16.0); Mean Corpuscular Hemoglobin 31.1 pg (27.0-31.0); Mean Corpuscular Volume 98.0 fL (78.0-98.0); Platelet Count 102 10x3/uL (130-400); Red Blood Cell (RBC) Count 3.51 mill/uL (4.20-5.40); White Blood Cell (WBC) Count 11.87 10x3/uL (4.8-10.8)
[2025-01-20 21:53] LABS: Actual Bicarbonate (HCO3v) 21.2 mEq/L (22-28); Base Excess -3.9 mEq/L (-2.0 to +3.0); Calcium, Ionized (venous) 0.94 mmol/L (1.16-1.32); Chloride (VBG) 106 mmol/L (98-106); Hematocrit-VBG 36 % (36.0-47.0); Hemoglobin (Hb) 12.3 g/dL (11.7-15.5); Potassium (VBG) 3.82 mmol/L (3.70-5.30); Sodium 139 mmol/L (133-146)
[2025-01-20 21:58] LABS: Ovalocytes SLIGHT = 2-5 cells HPF (0-1); Platelet Adequacy Comment Platelets Decreased; Polychromasia SLIGHT = 2-3 cells HPF (0-2)
[2025-01-20 22:07] LABS: ALT (SGPT) 19 U/L (Less than 34); AST (SGOT) 51 U/L (11-34); Albumin 2.3 g/dL (3.1-4.5); Alkaline Phosphatase 122 U/L (40-110); Anion Gap 17 mmol/L (10-20); BUN (Urea Nitrogen) 32 mg/dL (7.0-18.7); Bilirubin, Total 0.4 mg/dL (0.3-1.2); Calc. Creatinine Clearance 0 mL/min (70-130); Calcium 7.1 mg/dL (7.8-10.44); Carbon Dioxide 19 mmol/L (22-29); Chloride 106 mmol/L (98-107); Globulin 4.1 g/dL (2.4-3.5); Glucose 282 mg/dL (70-105); Potassium 3.9 mmol/L (3.5-5.1); Sodium 138 mmol/L (136-145)
[2025-01-20 22:10] LABS: Troponin I 0.070 ng/mL (< 0.028)
[2025-01-20] MEDS ORDERED: Cefepime 2 GM VIAL ONE (22:43)
[2025-01-20] MEDS ORDERED: NOREPINEPHRINE 8 MG/250 ML-D5W 250 ML ONE (23:06)
[2025-01-21] MEDS ORDERED: NOREPINEPHRINE 8 MG/250 ML-D5W 250 ML IVPB SCH (02:30)
[2025-01-21 03:43] VITALS: BMI 26.7
[2025-01-21] MEDS ORDERED: Dextrose 50% Abboject 50 ML SYRINGE SLOW IVP PRN (03:51)
[2025-01-21] MEDS ORDERED: Glucagon 1 MG/ML KIT IM PRN (03:51)
[2025-01-21] MEDS ORDERED: Ondansetron PF 4 MG/2 ML Vial IVP PRN (03:52)
[2025-01-21] MEDS: Sodium Bicarb 50 MEQ/50 ML Abboject 8.4% SYRINGE IVP SCH (04:43)
[2025-01-21 05:43] LABS: #Basophils Less than 0.03 10x3/uL (0.0-0.2); #Eosinophils 0.18 10x3/uL (0.0-0.7); #Monocytes 1.26 10x3/uL (0.11-0.59); #Neutrophils 10.74 10x3/uL (1.40-6.50); %Basophils 0.1 % (0.0-1.0); %Eosinophils 1.3 % (0.0-10.0); %Lymphocytes 10.1 % (21.0-51.0); %Monocytes 9.2 % (0.0-10.0); %Neutrophils 78.4 % (42.0-75.0); Hematocrit 33.5 % (36.0-47.0); Hemoglobin 10.7 g/dL (12.0-16.0); Mean Corpuscular Hemoglobin 31.0 pg (27.0-31.0); Mean Corpuscular Volume 97.1 fL (78.0-98.0); Platelet Count 115 10x3/uL (130-400); Red Blood Cell (RBC) Count 3.45 mill/uL (4.20-5.40); White Blood Cell (WBC) Count 13.71 10x3/uL (4.8-10.8)
[2025-01-21 05:51] LABS: ALT (SGPT) 28 U/L (Less than 34); AST (SGOT) 54 U/L (11-34); Albumin 2.1 g/dL (3.1-4.5); Alkaline Phosphatase 119 U/L (40-110); Anion Gap 14 mmol/L (10-20); BUN (Urea Nitrogen) 36 mg/dL (7.0-18.7); Bilirubin, Total 0.4 mg/dL (0.3-1.2); Calc. Creatinine Clearance 17 mL/min (70-130); Calcium 6.8 mg/dL (7.8-10.44); Carbon Dioxide 21 mmol/L (22-29); Chloride 112 mmol/L (98-107); Globulin 3.6 g/dL (2.4-3.5); Glucose 132 mg/dL (70-105); Magnesium 1.9 mg/dL (1.6-2.6); Potassium 3.9 mmol/L (3.5-5.1); Sodium 143 mmol/L (136-145)
[2025-01-21 08:27] LABS: Bacteria/HPF 3+ HPF (None Seen); CAUTI Indications for Culture Alt mental st,lethar; Glucose, Urine (Dipstick) 500 mg/dL (Negative); Leukocyte 250 Leu/uL (Negative); Protein, Urine (Dipstick) 300 mg/dL (Neg-Trace); Specific Gravity, Urine 1.020 (1.002-1.036); WBC/HPF Greater than 50 HPF (0-3)
[2025-01-21 08:45] LABS: Urine Culture Reflex Yes Yes
[2025-01-21] MEDS: PNEUMOC 20-VAL CONJ-DIP CRM/PF 0.5 ML SYRINGE IM ONE (09:24)
[2025-01-21] MEDS: Pantoprazole 40 MG VIAL IVP SCH (09:24)
[2025-01-21] MEDS: Heparin 5,000 UNITS/ML VIAL SC SCH (09:24)
[2025-01-21] MEDS: Gabapentin 300 MG CAP PO SCH (10:26)
[2025-01-21 11:55] LABS: Hep B Core Total Index 0.05 S/CO (0-0.79); Hep C Index 0.17 S/CO (0-0.79)
[2025-01-21 12:02] LABS: HBSAB Concentration Less than 8.00 mIU/mL; Hep B Core Total Ab NONREACTIVE (NonReactive); Hep C IgG Ab NONREACTIVE S/CO (NonReactive)
[2025-01-21 12:26] LABS: Hep B Surf Ag NONREACTIVE S/CO (NonReactive)
[2025-01-21 13:48] VITALS: BMI 26.7
[2025-01-21] MEDS: Insulin Glargine 30 UNITS/0.3 ML VIAL SC SCH (21:12)
[2025-01-21] MEDS: Acetaminophen 325 MG TAB PO PRN (21:17)
[2025-01-22 05:38] LABS: Hematocrit 34.7 % (36.0-47.0); Hemoglobin 11.0 g/dL (12.0-16.0); Mean Corpuscular Hemoglobin 31.0 pg (27.0-31.0); Mean Corpuscular Volume 97.7 fL (78.0-98.0); Platelet Count 110 10x3/uL (130-400); Red Blood Cell (RBC) Count 3.55 mill/uL (4.20-5.40); White Blood Cell (WBC) Count 8.09 10x3/uL (4.8-10.8)
[2025-01-22 06:06] LABS: Anion Gap 12 mmol/L (10-20); BUN (Urea Nitrogen) 20 mg/dL (7.0-18.7); Calc. Creatinine Clearance 27 mL/min (70-130); Calcium 8.0 mg/dL (7.8-10.44); Carbon Dioxide 28 mmol/L (22-29); Chloride 106 mmol/L (98-107); Glucose 124 mg/dL (70-105); Potassium 3.8 mmol/L (3.5-5.1); Sodium 142 mmol/L (136-145)
[2025-01-22] MEDS: Mupirocin 1 GM TUBE NASAL DECOLONIZATION TP SCH (07:23)
[2025-01-22] MEDS: Gabapentin 300 MG CAP PO SCH (09:56)
[2025-01-22] MEDS: hydrALAZINE 20 MG/ML VIAL SLOW IVP PRN (09:59)
[2025-01-22] MEDS: ALPRAZolam 0.25 MG TAB PO PRN (11:58)
[2025-01-22] MEDS: Calcium Carbonate 500 MG ChewTAB PO PRN (16:52)
[2025-01-22] MEDS: Mupirocin 1 GM TUBE NASAL DECOLOIZATION TP SCH (20:39)
[2025-01-22] MEDS: Melatonin 3 MG TAB PO PRN (20:55)
[2025-01-23] MEDS: HYDROcodone/Acetaminophen 5/325 mg Tablet PO SCH (00:20)
[2025-01-23 07:37] VITALS: BP 139/74; TEMP 99
== END 2025-01-23 11:00 | disposition home or self-care (01) | DRG 871 ==
LOC: ERS 20:46 → CCU 01-21 02:07 → 2NO 01-22 08:17
PROVIDERS: ADMIT Student in an Organized Health Care Education/Training Program; ATTEND Internal Medicine
PROC: 3E03329 Introduction of Other Anti-infective into Peripheral Vein, Percutaneous Approach (ICD-10-PCS; 2025-01-20)
PROC: 03HY32Z Insertion of Monitoring Device into Upper Artery, Percutaneous Approach (ICD-10-PCS; principal; 2025-01-21)
PROC: 4A133B1 Monitoring of Arterial Pressure, Peripheral, Percutaneous Approach (ICD-10-PCS; 2025-01-21)
PROC: 4A133J1 Monitoring of Arterial Pulse, Peripheral, Percutaneous Approach (ICD-10-PCS; 2025-01-21)
PROC: 3E033XZ Introduction of Vasopressor into Peripheral Vein, Percutaneous Approach (ICD-10-PCS; 2025-01-21)
DX: A41.9 Sepsis, unspecified organism (principal); N18.6 End stage renal disease; R65.21 Severe sepsis with septic shock; E87.20 Acidosis, unspecified; N39.0 Urinary tract infection, site not specified; Z88.8 Allergy status to other drugs, medicaments and biological substances; E11.22 Type 2 diabetes mellitus with diabetic chronic kidney disease; Z98.890 Other specified postprocedural states; Z99.2 Dependence on renal dialysis; D63.1 Anemia in chronic kidney disease; D69.6 Thrombocytopenia, unspecified; Z79.4 Long term (current) use of insulin; Z79.899 Other long term (current) drug therapy; Z79.01 Long term (current) use of anticoagulants; E83.51 Hypocalcemia; E83.39 Other disorders of phosphorus metabolism
CPT/HCPCS: 36415; 36416; 71045; 80048; 80053; 81001; 82805; 83036; 83605; 83735; 84100; 84145; 84484; 85025; 85027; 86704; 86706; 86803; 87040; 87077; 87086; 87186; 87340; 90471; 90677; 93005; 94760; G0009; J0360; J0692; J1644; J1815; J2470; J7030

== ENCOUNTER 2025-05-16 13:37 | Emergency (ER) | payer MEDICAID ==
[2025-05-16 15:54] LABS: #Basophils Less than 0.03 10x3/uL (0.0-0.2); #Eosinophils 0.05 10x3/uL (0.0-0.7); #Monocytes 0.77 10x3/uL (0.11-0.59); #Neutrophils 6.76 10x3/uL (1.40-6.50); %Basophils 0.1 % (0.0-1.0); %Eosinophils 0.5 % (0.0-10.0); %Lymphocytes 18.4 % (21.0-51.0); %Monocytes 8.2 % (0.0-10.0); %Neutrophils 72.3 % (42.0-75.0); Hematocrit 32.8 % (36.0-47.0); Hemoglobin 10.7 g/dL (12.0-16.0); Mean Corpuscular Hemoglobin 29.6 pg (27.0-31.0); Mean Corpuscular Volume 90.9 fL (78.0-98.0); Platelet Count 162 10x3/uL (130-400); Red Blood Cell (RBC) Count 3.61 mill/uL (4.20-5.40); White Blood Cell (WBC) Count 9.36 10x3/uL (4.8-10.8)
[2025-05-16 16:09] LABS: ALT (SGPT) 10 U/L (Less than 34); AST (SGOT) 26 U/L (11-34); Albumin 3.1 g/dL (3.1-4.5); Alkaline Phosphatase 131 U/L (40-110); Anion Gap 16 mmol/L (10-20); BUN (Urea Nitrogen) 21 mg/dL (7.0-18.7); Bilirubin, Total 0.4 mg/dL (0.3-1.2); Calc. Creatinine Clearance 0 mL/min (70-130); Calcium 8.0 mg/dL (7.8-10.44); Carbon Dioxide 27 mmol/L (22-29); Chloride 98 mmol/L (98-107); Globulin 5.0 g/dL (2.4-3.5); Glucose 156 mg/dL (70-105); Potassium 3.4 mmol/L (3.5-5.1); Sodium 138 mmol/L (136-145)
== END 2025-05-16 16:53 | disposition home or self-care (01) ==
LOC: ERS 13:37
DX: S91.101D Unspecified open wound of right great toe without damage to nail, subsequent encounter (principal); E11.22 Type 2 diabetes mellitus with diabetic chronic kidney disease; N18.6 End stage renal disease; I12.0 Hypertensive chronic kidney disease with stage 5 chronic kidney disease or end stage renal disease; E11.40 Type 2 diabetes mellitus with diabetic neuropathy, unspecified; I25.2 Old myocardial infarction; F17.210 Nicotine dependence, cigarettes, uncomplicated; W26.9XXD Contact with unspecified sharp object(s), subsequent encounter; Z99.2 Dependence on renal dialysis
CPT/HCPCS: 80053; 85025; 99283